=== PATIENT | male | born 1935 | race Caucasian/White ===

== ENCOUNTER 2019-02-18 09:50 | Outpatient (RCR) | payer MEDICARE | END 2019-02-19 | LOC: PT 09:50 | PROVIDERS: ATTEND Specialist | DX: M16.11 Unilateral primary osteoarthritis, right hip (principal); M62.81 Muscle weakness (generalized); M25.551 Pain in right hip; R26.2 Difficulty in walking, not elsewhere classified; M25.651 Stiffness of right hip, not elsewhere classified ==

== ENCOUNTER 2019-03-03 09:52 | Outpatient (RCR) | payer MEDICARE | END 2019-03-21 | LOC: PT 09:52 | PROVIDERS: ATTEND Specialist | DX: M16.11 Unilateral primary osteoarthritis, right hip (principal); M62.81 Muscle weakness (generalized); R26.2 Difficulty in walking, not elsewhere classified; M25.551 Pain in right hip; M25.651 Stiffness of right hip, not elsewhere classified | CPT/HCPCS: 97139 ==

== ENCOUNTER → 2019-05-09 | Outpatient (CLI) | payer MEDICARE ==
--- NOTE | 2019-05-09 18:27 | Diagnostic Imaging Report ---
Labeled WBC Study Reason for exam: Right hip and thigh pain x 3.5 months. Concern for osteomyelitis. Comparison: None Report: The patient's own white blood cells were labeled with [id number] HMPAO 23.5 mCi by a commercial radiopharmacy. Images of the pelvis, hips and thighs were obtained at 3.5 hours post administration of the labeled white blood cells. Distribution of tracer activity appears physiologic throughout the pelvis, hips and thighs to the knees. IMPRESSION: No scan evidence of osteomyelitis, specifically, none in the right hip or femur. Signed by: Dr. Tea Madrigal M.D. on 05/09/2019 6:24 PM
== END ==
LOC: NM 06:40
PROVIDERS: ATTEND Specialist
DX: M25.551 Pain in right hip (principal); M79.651 Pain in right thigh
CPT/HCPCS: 78806; A9521

== ENCOUNTER 2019-06-01 06:17 | Observation (INO) | payer MEDICARE ==
[2019-05-31 10:58] LABS: BASOPHILS # (AUTO) 0.1 (0.0-0.1); BASOPHILS % 0.9 % (0.0-1.0); EOSINOPHILS # (AUTO) 0.4 (0.0-0.4); EOSINOPHILS % 5.6 % (0.0-6.0); HEMATOCRIT 40.2 % (38.2-49.6); HEMOGLOBIN 12.7 g/dL (14.0-18.0); LYMPHOCYTES % 26.5 % (18.0-39.1); MEAN CORPUSCULAR HEMOGLOBIN 31.9 pg (28-32); MEAN CORPUSCULAR HGB CONC 31.6 g/dL (31-35); MONOCYTES # (AUTO) 0.8 (0.2-0.8); MONOCYTES % 10.4 % (4.4-11.3); NEUTROPHILS # (AUTO) 4.2 (2.1-6.9); NEUTROPHILS % 56.3 % (38.7-80.0); PLATELET COUNT 236 x10e3/uL (140-360); RED BLOOD COUNT 3.98 x10e6/uL (4.3-5.7); RED CELL DISTRIBUTION WIDTH 14.6 % (11.7-14.4)
--- NOTE | 2019-05-31 11:06 | Diagnostic Imaging Report ---
EXAM: CHEST 2 VIEWS DATE: 05/31/2019 9:42 AM INDICATION: Preoperative evaluation for right hip surgery COMPARISON: None FINDINGS: There are postsurgical changes from prior median sternotomy. The trachea is midline. There are bibasilar opacities suggestive of atelectasis. The lungs are otherwise symmetrically expanded without evidence for focal consolidation, pneumothorax, or significant pleural effusion. The cardiomediastinal silhouette is within normal limits. Atherosclerotic calcifications noted within the aortic arch. No acute osseous abnormality identified. IMPRESSION: No acute cardiopulmonary process identified. Signed by: Dr. Jairo Salazar MD on 05/31/2019 11:03 AM
[2019-05-31 11:20] LABS: ALBUMIN 3.7 g/dL (3.5-5.0); ALBUMIN/GLOBULIN RATIO 1.4 (0.8-2.0); ANION GAP 13.7 mmol/L (8-16); CALCIUM 9.6 mg/dL (8.4-10.2); CREATININE, SERUM 1.59 mg/dL (0.72-1.25); POTASSIUM 3.7 mmol/L (3.5-5.1)
[2019-05-31 11:57] LABS: INR 1.12; PROTHROMBIN TIME 14.9 seconds (11.9-14.5)
[2019-05-31 12:00] LABS: PARTIAL THROMBOPLASTIN TIME 30.1 seconds (23.8-35.5)
[~2019-06-01] VITALS: Ht 172.7 cm; Wt 59.0 kg
[~2019-06-01 06:17] MED LIST: ALLOPURINOL100 MG PO; ATORVASTATIN CA20 MG PO; CARVEDILOL3.125 MG PO; CLEARLAX119 GM PO; CLOPIDOGREL75 MG PO; COUMADIN5 MG PO; FERROUS SULFAT325 MG PO; FISH OIL 1,0001 EAC2 PO; FUROSEMIDE40 MG PO; GABAPENTIN100 MG PO; HYDRALAZINE HCL10 MG PO; ISOSORBIDE MONO20 MG PO; LEVOTHYROXINE50 MCG PO; LORATADINE10 MG PO; LOSARTAN POTASS25 MG PO; RANITIDINE HCL150 MG PO; VITAMIN B COMP1 EACH PO; VITAMIN B-121000 MCG PO; VITAMIN C250 MG PO; VITAMIN D32000 UNI1 PO
[2019-06-01] MEDS ORDERED: CLINDAMYCIN PHOS 900MG/ 50ML 50 ML IV ONE (07:22)
[2019-06-01] MEDS ORDERED: ACETAMINOPHEN 1000 MG/100 ML 100 ML IV ONE (08:54)
[2019-06-01] MEDS ORDERED: FENTANYL CITRATE/PF 100MCG/2 ML INJ ONE ×2 (08:54→11:42)
[2019-06-01] MEDS ORDERED: DIPHENHYDRAMINE HCL INJ 50 MG/ML VIAL IM/IV PRN (11:30)
[2019-06-01] MEDS ORDERED: ONDANSETRON HCL INJ 2MG/ML 2ML 2 MG/ML VIAL IV PRN (11:30)
[2019-06-01] MEDS ORDERED: NALOXONE HCL INJ 0.4 MG/ML AMP IV PRN (11:30)
[2019-06-01] MEDS ORDERED: HYDROMORPHONE 0.2MG/ML-SOD CHL 30ML PCA SYRINGE IV PRN (11:30)
[2019-06-01] MEDS ORDERED: ACETAMINOPHEN 1000 MG/100 ML IV PRN (11:30)
--- NOTE | 2019-06-01 13:21 | Diagnostic Imaging Report ---
INDICATION: Status post right hip surgery. COMPARISON: None. TECHNIQUE: Right hip radiograph 2 views. Right femur radiograph 2 views. FINDINGS / IMPRESSION: There is a right hip screw and intramedullary kimo secured by 1 distal femoral screw. No fracture is demonstrated. Air in the soft tissues of the thigh and skin radu are in keeping with immediate postoperative state. Femoral arterial calcifications noted. Signed by: Keyon Cervantes MD on 06/01/2019 1:18 PM
[2019-06-01 13:45] VITALS: BP 121/75
--- NOTE | 2019-06-01 13:45 | NUR ---
Received pt from PACU at this time. Pt was admitted s/p gamma nailing to right hip for stress fracture. Pt is aox4 and able to verbalize needs. Dressing to right knee are dry and intact. 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
[2019-06-01] MEDS: SODIUM CHLORIDE 0.9% 1000ML 1,000 ML IV SCH ×2 (14:00→21:20)
[2019-06-01 14:04] VITALS: BP 121/75
[2019-06-01] MEDS: CLINDAMYCIN PHOS 900MG/ 50ML 50 ML IV SCH ×2 (15:19→22:01)
[2019-06-01 15:52] VITALS: BP 152/66
--- NOTE | 2019-06-01 17:00 | NUR ---
Pt was up this afternoon ambulating with therapy. He was able to walk with rolling walker.
--- NOTE | 2019-06-01 18:55 | NUR ---
WALKING ROUNDS PERFORMED, RECEIVED PT LAYING SEMI FOWLERS IN BED, AAOX3, RR EVEN AND NON-LABORED, ON ROOM AIR. DRESSING TO (R) HIP NOTED TO BE CDI. STUNT PERFORMER BUTTON WITHIN REACH. LEFT PT LAYING SEMI FOWLERS IN BED, BED IN LOW LOCKED POSITION, SIDE RAILS UPX2, CALL LIGHT AND PHONE WITHIN REACH.
[2019-06-01 20:00] VITALS: BP 130/59
[2019-06-01 22:01] VITALS: BP 130/59
[2019-06-02] VITALS: BP 131/64
[2019-06-02 04:00] VITALS: BP 130/63
[2019-06-02] MEDS ORDERED: ACETAMINOPHEN 325 MG TAB PO PRN (05:15)
[2019-06-02] MEDS ORDERED: METOPROLOL TARTRATE INJ 1 MG/ML VIAL IV PRN (05:15)
[2019-06-02 05:29] LABS: BASOPHILS % 0.3 % (0.0-1.0); HEMATOCRIT 35.6 % (38.2-49.6); HEMOGLOBIN 11.6 g/dL (14.0-18.0); LYMPHOCYTES # (AUTO) 1.3 (1.0-3.2); LYMPHOCYTES % 11.3 % (18.0-39.1); MEAN CORPUSCULAR HEMOGLOBIN 32.9 pg (28-32); MEAN CORPUSCULAR HGB CONC 32.6 g/dL (31-35); MEAN CORPUSCULAR VOLUME 100.8 fL (81-99); MONOCYTES # (AUTO) 1.1 (0.2-0.8); MONOCYTES % 9.6 % (4.4-11.3); NEUTROPHILS % 78.2 % (38.7-80.0); PLATELET COUNT 200 x10e3/uL (140-360); RED BLOOD COUNT 3.53 x10e6/uL (4.3-5.7); RED CELL DISTRIBUTION WIDTH 14.6 % (11.7-14.4)
[2019-06-02 05:38] LABS: INR 1.13
[2019-06-02 05:43] LABS: ANION GAP 13.8 mmol/L (8-16); CREATININE, SERUM 1.55 mg/dL (0.72-1.25); POTASSIUM 3.8 mmol/L (3.5-5.1)
[2019-06-02] MEDS: CLINDAMYCIN PHOS 900MG/ 50ML 50 ML IV SCH (06:25)
[2019-06-02] MEDS ORDERED: FAMOTIDINE 20 MG TAB PO SCH ×2 (07:30→16:30)
[2019-06-02 07:53] VITALS: BP 129/61
[2019-06-02 08:00] VITALS: BP 129/61
[2019-06-02] MEDS ORDERED: RIVAROXABAN 10 MG TABLET PO SCH (08:00)
[2019-06-02] MEDS: CARVEDILOL 3.125 MG TAB PO SCH ×2 (08:23→16:37)
[2019-06-02] MEDS: GABAPENTIN 100 MG CAP PO SCH ×2 (08:25→16:36)
[2019-06-02] MEDS ORDERED: ATORVASTATIN 20 MG TAB PO SCH (09:00)
[2019-06-02] MEDS: HYDRALAZINE HCL 10 MG TAB PO SCH ×2 (09:00→16:44)
[2019-06-02] MEDS ORDERED: LEVOTHYROXINE SODIUM 50 MCG TAB PO SCH (09:00)
[2019-06-02] MEDS ORDERED: FUROSEMIDE 40 MG TAB PO SCH (09:00)
[2019-06-02] MEDS ORDERED: ALLOPURINOL 100 MG TAB PO SCH (09:00)
[2019-06-02] MEDS ORDERED: ISOSORBIDE MONONITRATE 20 MG TAB PO SCH (09:00)
[2019-06-02 11:25] VITALS: BP 123/61
[2019-06-02] MEDS ORDERED: HYDROCODONE/APAP 5MG-325MG TAB PO PRN ×2 (12:45)
--- NOTE | 2019-06-02 13:15 | NUR ---
MET WITH PT AND DTR [facility] FOR [facility] CHOICE LETTER GIVEN; SIGNED FOR [facility] [place] NOTIFIED [facility] OF CONSULT MOT INITIATED AND PLACED IN PACKET AT DESK PLAN DC TODAY AFTER ACCEPTED TO REHAB DR FLORES AWARE OF PLAN AND AGREEABLE AWAIT MOT
[2019-06-02] MEDS ORDERED: CYANOCOBALAMIN 1,000 MCG TAB PO SCH (14:00)
[2019-06-02] MEDS ORDERED: LORATADINE 10 MG TAB PO SCH (14:00)
[2019-06-02] MEDS ORDERED: CLOPIDOGREL BISULFATE 75 MG TAB PO SCH (14:00)
[2019-06-02] MEDS ORDERED: ONDANSETRON HCL 4 MG ORAL DISINTEGRATING TAB PO PRN (15:30)
[2019-06-02 16:17] VITALS: BP 137/72
[2019-06-02] MEDS ORDERED: WARFARIN SOD 5 MG TAB PO SCH (17:00)
[2019-06-02] MEDS ORDERED: OMEGA 3 POLYUNSAT FATTY ACIDS 1000 MG SOFTGEL PO SCH (17:00)
[2019-06-02] MEDS ORDERED: VITAMIN B COMPLEX PO SCH (17:00)
[2019-06-02] MEDS ORDERED: NON-FORMULARY MEDICATION (Omega-3 Fatty Acids/Fish Oil (Fish Oil 1,000 Mg Capsule) 1,000 M PO SCH (17:00)
[2019-06-02] MEDS ORDERED: NON-FORMULARY MEDICATION (Ranitidine Hcl 150 MG) PO SCH (17:00)
[2019-06-02] MEDS ORDERED: FOLIC ACID/CYANOCOB/PYRIDOXINE TAB PO SCH (17:00)
[2019-06-03] MEDS ORDERED: LEVOTHYROXINE SODIUM 50 MCG TAB PO SCH (06:00)
[2019-06-03] MEDS ORDERED: ASCORBIC ACID 500 MG TAB PO SCH (09:00)
[2019-06-03] MEDS ORDERED: WARFARIN SOD 5 MG TAB PO SCH (09:00)
[2019-06-03] MEDS ORDERED: POLYETHYLENE GLYCOL PO SCH (09:00)
[2019-06-03] MEDS ORDERED: POLYETHYLENE GLYCOL 3350 17 GM PACK PO SCH (09:00)
[2019-06-03] MEDS ORDERED: ASCORBIC ACID 250 MG PO SCH (09:00)
[2019-06-03] MEDS ORDERED: FERROUS SULFATE 325 MG TAB PO SCH (09:00)
[2019-06-03] MEDS ORDERED: LOSARTAN POTASSIUM 25 MG TAB PO SCH (09:00)
[2019-06-03] MEDS ORDERED: NON-FORMULARY MEDICATION (Cholecalciferol (Vitamin D3) (Vitamin D3) 2,000 UNIT) PO SCH (09:00)
[2019-06-03] MEDS ORDERED: CHOLECALCIFEROL 1,000 UNIT TAB PO SCH (09:00)
--- NOTE | 2019-06-03 17:43 | Operative Report ---
DATE OF PROCEDURE: 06/01/2019 SURGEON: Leonardo Moran MD PREOPERATIVE DIAGNOSIS: Right hip stress fracture. POSTOPERATIVE DIAGNOSIS: Right hip stress fracture. OPERATIONS AND PROCEDURES PERFORMED: The patient underwent a right long gamma nail. STONECUTTER APPRENTICE HAND: GLORIA Nolan. ANESTHESIA: General endotracheal intubation anesthesia. IV FLUIDS: Per the Anesthesia record. BLOOD LOSS: Approximately 100 mL. BRIEF DESCRIPTION OF THE PATIENT'S OPERATIVE PROCEDURE: Mr. Monte was taken to the operating room and placed in the supine position on the fracture table. Following induction of general anesthesia as well as endotracheal intubation, the patient's right lower extremity was examined under anesthesia. The patient was found to have diffuse normal-appearing right lower extremity. The patient was transferred to the fracture table. The right lower extremity was placed in a well-padded longitudinal traction and the left lower extremity was placed in a well-padded lithotomy position. Fluoroscopic evaluation of the hip joint demonstrated mild hip arthritis, but no other gross abnormality. The patient's lower extremity was then prepped and draped in standard surgical fashion. The case was begun by creating incision at the level of the greater trochanter. This incision was carried through skin only. Blunt dissection was used to deepen the incision to the level of the tensor fascia magnolia. The tensor fascia magnolia was then divided in line with the skin incision. Blunt dissection was again used to gain access to the proximal aspect of the greater trochanter. An awl was placed of the trochanter and the position of the awl was checked using fluoroscopy. The awl was then advanced within the femur and a guidewire was then passed within the medullary canal of the femur to the level of the knee. The position of the guidewire was checked in both AP and lateral planes using fluoroscopy. Sequential reaming was undertaken. An appropriate-sized gamma nail was chosen and inserted without difficulty. A second incision was created along the lateral aspect of the thigh. Blunt dissection was used to deepen the incision and the tensor fascia magnolia was again incised in line with the skin incision. The guide for the compression screw was then advanced against the lateral aspect of the femur and a guidepin was advanced from lateral to medial through the neck into the head of the femur. The position of the guidepin was checked using fluoroscopy. The patient was found to have a retroverted head. Measurements were taken and a reamer was used to create a channel for the compression screw. The compression screw was then advanced across the patient's right femoral neck and placed in the head of the femur. Compression was then placed across fixation device and the compression screw was locked to allow for further compression, but to prevent rotation. The nail was then locked distally with a single screw using a freehand technique. The gamma nail was then visualized in its entirety and found to be in appropriate position. All wounds were copiously irrigated. The wounds were closed in a multilayer fashion. Sterile dressings were applied. The patient was awakened and taken to the postanesthesia anesthesia care in stable condition. Mariaelena Isbell was the virtual customer assistant for this case and was necessary for both prepping and draping the patient as well as retraction of soft tissues and the closure of wounds that allowed this case to be successful. MD CHARLA Pedroza/MARILU /[id number]
[2019-06-03] MEDS ORDERED: ATORVASTATIN 40 MG TAB PO SCH (21:00)
--- OUTSIDE RECORDS SUMMARY | 2019-06-10 10:51 | XMS REPORT ---
Author Author [facility] Address Unknown Phone Unavailable Care Team Providers Care Auto Transmission Specialist Name Role Phone BROOKS FLORES Unavailable Unavailable DAINA ALONSO Unavailable Unavailable JAILYN SIMONS Unavailable Unavailable LORENZA WILLARD Unavailable Unavailable Tyrone MOON Unavailable Unavailable LATHA WAGONER Unavailable Unavailable Problems This patient has no known problems. Allergies, Adverse Reactions, Alerts This patient has no known allergies or adverse reactions. Medications This patient has no known medications. Encounters Start Date/Time End Date/Time Encounter Type Admission Type Attending Clinicians Care Facility Care Department Encounter ID 2018-11-22 15:52:05 Outpatient MHSE MHSE [id number] 2018-12-30 10:29:00 2018-12-30 10:29:00 Outpatient MH MHSE [id number] Results Test Description Test Time Test Comments Text Results Atomic Results Result Comments FEMUR ONE VIEW RIGHT 2019-06-01 13:15:00 [place] [address] Patient Name: YA DUARTE MR #: [id number] : 1935 Age/Sex: 83/M Req #: [id number] [facility] Physician: BROOKS FLORES MD Ordered by: BROOKS FLORES MD Report #: [id number] Location: PACU V Room/Bed: V PACU-1 Procedure: [id number] DX/FEMUR ONE VIEW RIGHT Exam Date: Exam Time: REPORT STATUS: Signed INDICATION: Status post right hip surgery. COMPARISON: None. TECHNIQUE: Right hip radiograph 2 views. Right femur radiograph 2 views. FINDINGS / IMPRESSION: There is a right hip screw and intramedullary kimo secured by 1 distal femoral screw. No fracture is demonstrated. Air in the soft tissues of the thigh and skin radu are in keeping with immediate postoperative state. Femoral arterial calcifications noted. Signed by: Keyon Cervantes MD on 06/01/2019 1:18 PM Dictated By: KEYON CERVANTES 17 Transcribed By: RYNE on 06/01/191317 COPY TO: BROOKS FLORES MD HIP RIGHT 2-3 VW (+/- PELVIS) 2019-06-01 13:15:00 [place] [address] Patient Name: YA DUARTE MR #: [id number] : 1935 Age/Sex: 83/M Req #: [id number] Adm Physician: BROOKS FLORES MD Ordered by: BROOKS FLORES MD Report #: [id number] Location: PACU V Room/Bed: PACU-1 Procedure: [id number] DX/HIP RIGHT 2-3 VW (+/- PELVIS) Exam Date: Exam Time: REPORT STATUS: Signed INDICATION: Status post right hip surgery. COMPARISON: None. TECHNIQUE: Right hip radiograph 2 views. Right femur radiograph 2 views. FINDINGS / IMPRESSION: There is a right hip screw and intramedullary kimo secured by 1 distal femoral screw. No fracture is demonstrated. Air in the soft tissues of the thigh and skin radu are in keeping with immediate postoperative state. Femoral arterial calcifications noted. Signed by: Keyon Cervantes MD on 06/01/2019 1:18 PM Dictated By: KEYON CERVANTES 17 Transcribed By: RYNE on 06/01/191317 COPY TO: BROOKS FLORES MD CHEST 2 VIEWS 2019-05-31 11:01:00 [place] [address] Patient Name: YA DUARTE MR #: [id number] : 1935 Age/Sex: 83/M Req #: [id number] Adm Physician: Ordered by: BROOKS FLORES MD Report #: [id number] Location: OR Room/Bed: Procedure: [id number] DX/CHEST 2 VIEWS Exam Date: Exam Time: REPORT STATUS: Signed EXAM: CHEST 2 VIEWS DATE: 05/31/2019 9:42 AM INDICATION: Pr eoperative evaluation for right hip surgery COMPARISON: None FINDINGS: There are postsurgical changes from prior median sternotomy. The trachea is midline. There are bibasilar opacities suggestive of atelectasis. The lungs are otherwise symmetrically expanded without evidence for focal consolidation, pneumothorax, or significant pleural effusion. The cardiomediastinal silhouette is within normal limits. Atherosclerotic calcifications noted within the aortic arch. No acute osseous abnormality identified. IMPRESSION: No acute cardiopulmonary process identif ied. Signed by: Dr. Jairo Salazar MD on 05/31/2019 11:03 AM Dictated By: JAIRO SALAZAR MD 110 Transcribed By: RYNE on 05/31/191102 COPY TO: BROOKS FLORES MD TAGGED WBC 2019-05-09 18:14:00 [place] [address] [place] [address] Patient Name: YA DUARTE MR #: [id number] : 1935 Age/Sex: 83/M Req #: [id number] Adm Physician: Ordered by: BROOKS FLORES MD Report #: [id number] Location: RI Room/Bed: Procedure: [id number] NM/TAGGED WBC Exam Date: 05/09/19 Exam Time: 0800 REPORT STATUS: Signed Labeled WBC Study Reason for exam: Right hip and thigh pain x 3.5 months. Concern for osteomyelitis. Comparison: None Report: The patient's own white blood cells were labeled with Tc-99m HMPAO 23.5 mCi by a commercial radiopharmacy. Images of the pelvis, hips and thighs were obtained at 3.5 hours post administration of the labeled white blood cells. Distribution of tracer activity appears physiologic throughout the pelvis, hips and thighs to the knees. IMPRESSION: No scan evidence of osteomyelitis, specifically, none in the right hip or femur. Signed by: Dr. Leandro Madrigal M.D. on 05/09/2019 6:24 PM Dictated By: LEANDRO MADRIGAL MD 23 Transcribed By: RYNE on 05/09/191823 COPY TO: BROOKS FLORES MD MR, EXTREMITY, LOWER, JOINT, WITH 2019-03-24 14:28:00 Referring Md: Angelika Murray needs to have MRI scheduled with coordiantion with anesthesiaPt unable to lay down due to severe painReason for exam:->severe painAnesthesia:->General FINAL REPORT MRI right hip with and without contrast. INDICATION: Hip pain, initial examsevere pain COMPARISON: CT dated March 06, 2019 and radiograph dated January 25, 2019 T ECHNIQUE: Multiplanar multisequence MRI examination of the right hip was performed with and without intravenous gadolinium. FINDINGS: Marked edema is seen in the right femoral head, neck and proximal shaft. There is severe osteoarthritis of the right hip, subchondral marrow edema is also seen at the right acetabulum. At the anterior superior as well as posterior superior aspect of the right femoral head, peripheral T1 and T2 hypointense signal as well as lack of enhancement suggests avascular necrosis, perhaps with superimposed subtle subchondral fracture. There is a vague T1 hypointense horizontal band in the right femoral neck, raising suspicion for stress reaction. A small to moderate right-sided hip joint effusion is present. The superior labrum is degenerated, but no definite labral tear is identified. There is mild edema at the inferior aspect of the right SI joint, which may reflect degenerative change/stress reaction. The hamstring, iliopsoas, and gluteus tendons are intact. There is patchy edema in the right proximal obturator externus, gluteus minimus, proximal adductor muscles, as well as iliacus muscles, most likely to reflect strain. Normal muscle bulk. Within the pelvis, no mass or lymphadenopathy is identified. No ascites. Note is made of colonic diverticulosis. 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 Prominent marrow edema in the right femoral head, neck and proximal shaft could be related to degenerative change, and avascular necrosis, but the degree of edema is more than what is typically expected. There is a questionable focus of stress reaction in the right femoral neck. While septic arthritis is less likely, clinical correlation is needed to exclude this process. Patchy right pelvic muscle edema, probably reflecting strain. Mild edema at the inferior aspect of the right SI joint, which may reflect degenerative change/stress reaction. Signed: Marla Islas Verified Date/Time: 03/24/2019 14:28:36 Reading Location: [facility] C013X Ortho Consult Reading Room W/PLT COUNT & AUTO DIFFERENTIAL 2019-03-24 06:57:00 WHITE BLOOD CELL COUNT (BEAKER) (test cchr=441) 10.4 K/ L 3.5-10.5 RED BLOOD CELL COUNT (BEAKER) (test qumj=249) 4.24 M/ L 4.63-6.08 HEMOGLOBIN (BEAKER) (test xrxb=902) 13.7 GM/DL 13.7-17.5 HEMATOCRIT (BEAKER) (test czzp=564) 41.9 % 40.1-51.0 MEAN CORPUSCULAR VOLUME (BEAKER) (test vfdy=923) 98.8 fL 79.0-92.2 MEAN CORPUSCULAR HEMOGLOBIN (BEAKER) (test xmsk=019) 32.3 pg 25.7-32.2 MEAN CORPUSCULAR HEMOGLOBIN CONC (BEAKER) (test iepj=942) 32.7 GM/DL 32.3-36.5 RED CELL DISTRIBUTION WIDTH (BEAKER) (test vwff=690) 15.0 % 11.6-14.4 PLATELET COUNT (BEAKER) (test yjqx=138) 214 K/CU MM 150-450 MEAN PLATELET VOLUME (BEAKER) (test oafe=488) 10.5 fL 9.4-12.4 NUCLEATED RED BLOOD CELLS (BEAKER) (test mnib=051) 0 /100 WBC 0-0 NEUTROPHILS RELATIVE PERCENT (BEAKER) (test ouvd=460) 83 % LYMPHOCYTES RELATIVE PERCENT (BEAKER) (test sfsn=751) 12 % MONOCYTES RELATIVE PERCENT (BEAKER) (test fhuu=114) 5 % EOSINOPHILS RELATIVE PERCENT (BEAKER) (test ihxw=818) 0 % BASOPHILS RELATIVE PERCENT (BEAKER) (test romn=333) 0 % NEUTROPHILS ABSOLUTE COUNT (BEAKER) (test oopi=109) 8.65 K/ L 1.78-5.38 LYMPHOCYTES ABSOLUTE COUNT (BEAKER) (test dnso=853) 1.22 K/ L 1.32-3.57 MONOCYTES ABSOLUTE COUNT (BEAKER) (test iqjw=671) 0.50 K/ L 0.30-0.82 EOSINOPHILS ABSOLUTE COUNT (BEAKER) (test vsfq=630) 0.00 K/ L 0.04-0.54 BASOPHILS ABSOLUTE COUNT (BEAKER) (test fhwz=604) 0.03 K/ L 0.01-0.08 IMMATURE GRANULOCYTES-RELATIVE PERCENT (BEAKER) (test sjcg=2769) 0 % 0-1 [id number] 06:56:00* Test Item Value Reference Range Comments PHOSPHORUS (BEAKER) (test gxxw=425) 2.0 mg/dL 2.3-4.7 [id number] 06:56:00* Test Item Value Reference Range Comments MAGNESIUM (BEAKER) (test cinp=642) 1.5 mg/dL 1.6-2.6 BASIC METABOLIC [id number] 06:56:00* Test Item Value Reference Range Comments SODIUM (BEAKER) (test khoi=373) 140 meq/L 136-145 POTASSIUM (BEAKER) (test ofvj=655) 3.7 meq/L 3.5-5.1 CHLORIDE (BEAKER) (test txls=790) 104 meq/L 98-107 CO2 (BEAKER) (test hzkj=486) 26 meq/L 22-29 BLOOD UREA NITROGEN (BEAKER) (test kjsx=046) 27 mg/dL 7-21 CREATININE (BEAKER) (test ufoj=085) 1.43 mg/dL 0.57-1.25 GLUCOSE RANDOM (BEAKER) (test ehrb=599) 135 mg/dL 70-105 CALCIUM (BEAKER) (test auak=867) 9.1 mg/dL 8.4-10.2 EGFR (BEAKER) (test lxmk=9351) 47 mL/min/1.73 sq m ESTIMATED GFR IS NOT ACCURATE CREATININE CLEARANCE IN PREDICTING GLOMERULAR FILTRATION RATE. ESTIMATED GFR IS NOT APPLICABLE FOR DIALYSIS PATIENTS. CALCIUM, [id number] 06:44:00* Test Item Value Reference Range Comments CALCIUM IONIZED (BEAKER) (test eics=468) 1.09 mmol/L 1.12-1.27 PH, BLOOD (BEAKER) (test txtv=8048) 7.46 OVA AND PARASITE [id number] 07:48:00* Test Item Value Reference Range Comments CONCENTRATE SMEAR - O\T\P (BEAKER) (test rmpi=167) No ova or parasites seen No ova or parasites seen TRICHROME SMEAR - O\T\P (BEAKER) (test qlwe=389) No ova or parasites seen No ova or parasites seen CALCIUM, [id number] 06:01:00* Test Item Value Reference Range Comments CALCIUM IONIZED (BEAKER) (test tkhg=853) 1.11 mmol/L 1.12-1.27 PH, BLOOD (BEAKER) (test pgaw=9540) 7.47 [id number] 04:41:00* Test Item Value Reference Range Comments PHOSPHORUS (BEAKER) (test kdzb=485) 2.8 mg/dL 2.3-4.7 [id number] 04:41:00* Test Item Value Reference Range Comments MAGNESIUM (BEAKER) (test aeby=279) 1.5 mg/dL 1.6-2.6 BASIC METABOLIC [id number] 04:41:00* Test Item Value Reference Range Comments SODIUM (BEAKER) (test sybe=709) 143 meq/L 136-145 POTASSIUM (BEAKER) (test moiz=873) 3.6 meq/L 3.5-5.1 CHLORIDE (BEAKER) (test inne=264) 108 meq/L 98-107 CO2 (BEAKER) (test rqrl=306) 29 meq/L 22-29 BLOOD UREA NITROGEN (BEAKER) (test ldym=804) 23 mg/dL 7-21 CREATININE (BEAKER) (test mbiq=916) 1.56 mg/dL 0.57-1.25 GLUCOSE RANDOM (BEAKER) (test jdoa=869) 108 mg/dL 70-105 CALCIUM (BEAKER) (test xwja=899) 9.0 mg/dL 8.4-10.2 EGFR (BEAKER) (test uamw=3551) 43 mL/min/1.73 sq m ESTIMATED GFR IS NOT ACCURATE CREATININE CLEARANCE IN PREDICTING GLOMERULAR FILTRATION RATE. ESTIMATED GFR IS NOT APPLICABLE FOR DIALYSIS PATIENTS. CBC W/PLT COUNT & AUTO [id number] 04:18:00* Test Item Value Reference Range Comments WHITE BLOOD CELL COUNT (BEAKER) (test oyqe=593) 7.3 K/ L 3.5-10.5 RED BLOOD CELL COUNT (BEAKER) (test aapz=526) 3.92 M/ L 4.63-6.08 HEMOGLOBIN (BEAKER) (test yysl=794) 12.7 GM/DL 13.7-17.5 HEMATOCRIT (BEAKER) (test liah=805) 38.6 % 40.1-51.0 MEAN CORPUSCULAR VOLUME (BEAKER) (test uxwx=398) 98.5 fL 79.0-92.2 MEAN CORPUSCULAR HEMOGLOBIN (BEAKER) (test isxa=266) 32.4 pg 25.7-32.2 MEAN CORPUSCULAR HEMOGLOBIN CONC (BEAKER) (test bnsh=639) 32.9 GM/DL 32.3-36.5 RED CELL DISTRIBUTION WIDTH (BEAKER) (test qlie=023) 15.0 % 11.6-14.4 PLATELET COUNT (BEAKER) (test eevl=983) 209 K/CU MM 150-450 MEAN PLATELET VOLUME (BEAKER) (test htht=256) 10.4 fL 9.4-12.4 NUCLEATED RED BLOOD CELLS (BEAKER) (test ktfx=774) 0 /100 WBC 0-0 NEUTROPHILS RELATIVE PERCENT (BEAKER) (test yrtz=497) 57 % LYMPHOCYTES RELATIVE PERCENT (BEAKER) (test wrep=427) 28 % MONOCYTES RELATIVE PERCENT (BEAKER) (test axmv=470) 9 % EOSINOPHILS RELATIVE PERCENT (BEAKER) (test hkrp=959) 4 % BASOPHILS RELATIVE PERCENT (BEAKER) (test xmmn=190) 1 % NEUTROPHILS ABSOLUTE COUNT (BEAKER) (test aqqk=761) 4.16 K/ L 1.78-5.38 LYMPHOCYTES ABSOLUTE COUNT (BEAKER) (test lssi=454) 2.03 K/ L 1.32-3.57 MONOCYTES ABSOLUTE COUNT (BEAKER) (test nlbc=821) 0.69 K/ L 0.30-0.82 EOSINOPHILS ABSOLUTE COUNT (BEAKER) (test rqrg=479) 0.32 K/ L 0.04-0.54 BASOPHILS ABSOLUTE COUNT (BEAKER) (test qfym=650) 0.07 K/ L 0.01-0.08 IMMATURE GRANULOCYTES-RELATIVE PERCENT (BEAKER) (test mijh=8720) 1 % 0-1 BASIC METABOLIC [id number] 06:17:00* Test Item Value Reference Range Comments SODIUM (BEAKER) (test qsrf=920) 141 meq/L 136-145 POTASSIUM (BEAKER) (test alje=443) 3.5 meq/L 3.5-5.1 CHLORIDE (BEAKER) (test laia=564) 108 meq/L 98-107 CO2 (BEAKER) (test lrmv=450) 26 meq/L 22-29 BLOOD UREA NITROGEN (BEAKER) (test qaqg=596) 15 mg/dL 7-21 CREATININE (BEAKER) (test ixqe=940) 1.25 mg/dL 0.57-1.25 GLUCOSE RANDOM (BEAKER) (test pjkx=709) 84 mg/dL 70-105 CALCIUM (BEAKER) (test jtdo=770) 8.9 mg/dL 8.4-10.2 EGFR (BEAKER) (test cgto=8682) 55 mL/min/1.73 sq m ESTIMATED GFR IS NOT ACCURATE CREATININE CLEARANCE IN PREDICTING GLOMERULAR FILTRATION RATE. ESTIMATED GFR IS NOT APPLICABLE FOR DIALYSIS PATIENTS. PROTHROMBIN TIME/[id number] 06:07:00* Test Item Value Reference Range Comments PROTIME (BEAKER) (test dioe=403) 28.7 seconds 11.9-14.2 INR (BEAKER) (test kehb=103) 2.9 <=5.9 Effective 11/17/2018: PT Reference Range ChangeNew: 11.9-14.2 Previous: 11.7-14. 7RECOMMENDED COUMADIN/WARFARIN INR THERAPY RANGESSTANDARD DOSE: 2.0-3.0 Include s: PROPHYLAXIS for venous thrombosis, systemic embolization; TREATMENT for venou s thrombosis and/or pulmonary embolus.HIGH RISK: Target INR is 2.5-3.5 for patie nts wiht mechanical heart valves.CBC (HEMOGRAM ONLY)2019-03-22 05:55:00* Test Item Value Reference Range Comments WHITE BLOOD CELL COUNT (BEAKER) (test cpsv=572) 7.5 K/ L 3.5-10.5 RED BLOOD CELL COUNT (BEAKER) (test ffgz=660) 3.88 M/ L 4.63-6.08 HEMOGLOBIN (BEAKER) (test mczj=234) 12.8 GM/DL 13.7-17.5 HEMATOCRIT (BEAKER) (test scru=520) 37.8 % 40.1-51.0 MEAN CORPUSCULAR VOLUME (BEAKER) (test mejt=499) 97.4 fL 79.0-92.2 MEAN CORPUSCULAR HEMOGLOBIN (BEAKER) (test vsxh=346) 33.0 pg 25.7-32.2 MEAN CORPUSCULAR HEMOGLOBIN CONC (BEAKER) (test ywqr=897) 33.9 GM/DL 32.3-36.5 RED CELL DISTRIBUTION WIDTH (BEAKER) (test ucny=252) 15.1 % 11.6-14.4 PLATELET COUNT (BEAKER) (test bctx=251) 208 K/CU MM 150-450 MEAN PLATELET VOLUME (BEAKER) (test bqoi=004) 10.4 fL 9.4-12.4 NUCLEATED RED BLOOD CELLS (BEAKER) (test mcvj=371) 0 /100 WBC 0-0 STOOL CULTURE + SHIGA [id number] 12:45:00* Test Item Value Reference Range Comments CULTURE (BEAKER) (test zkwx=6931) No Salmonella, Shigella or Campylobacter isolated STOOL PATH [id number] 12:45:00* Test Item Value Reference Range Comments PATHOGEN EXAM CHARGED (BEAKER) (test ckdy=4303) Done HEPATIC FUNCTION [id number] 07:58:00* Test Item Value Reference Range Comments TOTAL PROTEIN (BEAKER) (test jbal=832) 5.4 gm/dL 6.0-8.3 ALBUMIN (BEAKER) (test trha=2794) 3.3 g/dL 3.5-5.0 BILIRUBIN TOTAL (BEAKER) (test qodl=198) 0.5 mg/dL 0.2-1.2 BILIRUBIN DIRECT (BEAKER) (test kipn=394) 0.3 mg/dL 0.1-0.5 ALKALINE PHOSPHATASE (BEAKER) (test sriz=289) 109 U/L 40-150 AST (SGOT) (BEAKER) (test hcrq=347) 22 U/L 5-34 ALT (SGPT) (BEAKER) (test vexe=399) 17 U/L 6-55 BASIC METABOLIC [id number] 07:58:00* Test Item Value Reference Range Comments SODIUM (BEAKER) (test tnja=267) 142 meq/L 136-145 POTASSIUM (BEAKER) (test oyhe=861) 3.6 meq/L 3.5-5.1 CHLORIDE (BEAKER) (test wbbx=469) 114 meq/L 98-107 CO2 (BEAKER) (test lqwo=074) 22 meq/L 22-29 BLOOD UREA NITROGEN (BEAKER) (test mniw=890) 16 mg/dL 7-21 CREATININE (BEAKER) (test bivi=790) 1.13 mg/dL 0.57-1.25 GLUCOSE RANDOM (BEAKER) (test wbeo=475) 86 mg/dL 70-105 CALCIUM (BEAKER) (test ugky=339) 9.0 mg/dL 8.4-10.2 EGFR (BEAKER) (test okmx=6014) 62 mL/min/1.73 sq m ESTIMATED GFR IS NOT ACCURATE CREATININE CLEARANCE IN PREDICTING GLOMERULAR FILTRATION RATE. ESTIMATED GFR IS NOT APPLICABLE FOR DIALYSIS PATIENTS. PROTHROMBIN TIME/[id number] 07:46:00* Test Item Value Reference Range Comments PROTIME (BEAKER) (test uctn=676) 33.5 seconds 11.9-14.2 INR (BEAKER) (test okej=481) 3.5 <=5.9 Effective 11/17/2018: PT Reference Range ChangeNew: 11.9-14.2 Previous: 11.7-14. 7RECOMMENDED COUMADIN/WARFARIN INR THERAPY RANGESSTANDARD DOSE: 2.0-3.0 Include s: PROPHYLAXIS for venous thrombosis, systemic embolization; TREATMENT for venou s thrombosis and/or pulmonary embolus.HIGH RISK: Target INR is 2.5-3.5 for patie nts wiht mechanical heart valves.CBC (HEMOGRAM ONLY)2019-03-21 07:37:00* Test Item Value Reference Range Comments WHITE BLOOD CELL COUNT (BEAKER) (test gsch=766) 7.1 K/ L 3.5-10.5 RED BLOOD CELL COUNT (BEAKER) (test hpfm=581) 3.63 M/ L 4.63-6.08 HEMOGLOBIN (BEAKER) (test vmnq=764) 11.9 GM/DL 13.7-17.5 HEMATOCRIT (BEAKER) (test leki=472) 36.4 % 40.1-51.0 MEAN CORPUSCULAR VOLUME (BEAKER) (test vdli=292) 100.3 fL 79.0-92.2 MEAN CORPUSCULAR HEMOGLOBIN (BEAKER) (test xzac=811) 32.8 pg 25.7-32.2 MEAN CORPUSCULAR HEMOGLOBIN CONC (BEAKER) (test glug=499) 32.7 GM/DL 32.3-36.5 RED CELL DISTRIBUTION WIDTH (BEAKER) (test vpan=560) 15.1 % 11.6-14.4 PLATELET COUNT (BEAKER) (test ogtv=992) 195 K/CU MM 150-450 MEAN PLATELET VOLUME (BEAKER) (test cfkq=037) 10.4 fL 9.4-12.4 NUCLEATED RED BLOOD CELLS (BEAKER) (test zzyi=288) 0 /100 WBC 0-0 SHIGA TOXIN [id number] 13:37:00* Test Item Value Reference Range Comments SHIGA TOXIN 1 (BEAKER) (test vrlg=5450) Not detected Not detected SHIGA TOXIN 2 (BEAKER) (test sdyt=2848) Not detected Not detected HEPATIC FUNCTION [id number] 05:52:00* Test Item Value Reference Range Comments TOTAL PROTEIN (BEAKER) (test nbwj=687) 5.2 gm/dL 6.0-8.3 ALBUMIN (BEAKER) (test eonu=4478) 3.2 g/dL 3.5-5.0 BILIRUBIN TOTAL (BEAKER) (test rvdr=175) 0.5 mg/dL 0.2-1.2 BILIRUBIN DIRECT (BEAKER) (test rmvm=811) 0.3 mg/dL 0.1-0.5 ALKALINE PHOSPHATASE (BEAKER) (test ddvu=244) 90 U/L 40-150 AST (SGOT) (BEAKER) (test swyr=966) 20 U/L 5-34 ALT (SGPT) (BEAKER) (test fsix=651) 15 U/L 6-55 BASIC METABOLIC [id number] 05:52:00* Test Item Value Reference Range Comments SODIUM (BEAKER) (test pgls=330) 140 meq/L 136-145 POTASSIUM (BEAKER) (test votg=040) 3.4 meq/L 3.5-5.1 CHLORIDE (BEAKER) (test mazl=936) 112 meq/L 98-107 CO2 (BEAKER) (test cmsw=783) 22 meq/L 22-29 BLOOD UREA NITROGEN (BEAKER) (test fdco=653) 21 mg/dL 7-21 CREATININE (BEAKER) (test fnfr=151) 1.37 mg/dL 0.57-1.25 GLUCOSE RANDOM (BEAKER) (test antm=251) 87 mg/dL 70-105 CALCIUM (BEAKER) (test cdsn=357) 8.5 mg/dL 8.4-10.2 EGFR (BEAKER) (test kirs=9002) 50 mL/min/1.73 sq m ESTIMATED GFR IS NOT ACCURATE CREATININE CLEARANCE IN PREDICTING GLOMERULAR FILTRATION RATE. ESTIMATED GFR IS NOT APPLICABLE FOR DIALYSIS PATIENTS. PROTHROMBIN TIME/[id number] 05:32:00* Test Item Value Reference Range Comments PROTIME (BEAKER) (test xmrj=631) 31.3 seconds 11.9-14.2 INR (BEAKER) (test csug=510) 3.2 <=5.9 Effective 11/17/2018: PT Reference Range ChangeNew: 11.9-14.2 Previous: 11.7-14. 7RECOMMENDED COUMADIN/WARFARIN INR THERAPY RANGESSTANDARD DOSE: 2.0-3.0 Include s: PROPHYLAXIS for venous thrombosis, systemic embolization; TREATMENT for venou s thrombosis and/or pulmonary embolus.HIGH RISK: Target INR is 2.5-3.5 for patie nts wiht mechanical heart valves.CBC (HEMOGRAM ONLY)2019-03-20 05:31:00* Test Item Value Reference Range Comments WHITE BLOOD CELL COUNT (BEAKER) (test kqkc=664) 7.2 K/ L 3.5-10.5 RED BLOOD CELL COUNT (BEAKER) (test rhbl=221) 3.52 M/ L 4.63-6.08 HEMOGLOBIN (BEAKER) (test rzbm=044) 11.6 GM/DL 13.7-17.5 HEMATOCRIT (BEAKER) (test mzne=205) 35.0 % 40.1-51.0 MEAN CORPUSCULAR VOLUME (BEAKER) (test rjdf=076) 99.4 fL 79.0-92.2 MEAN CORPUSCULAR HEMOGLOBIN (BEAKER) (test pukg=518) 33.0 pg 25.7-32.2 MEAN CORPUSCULAR HEMOGLOBIN CONC (BEAKER) (test fqpy=639) 33.1 GM/DL 32.3-36.5 RED CELL DISTRIBUTION WIDTH (BEAKER) (test xpok=965) 14.9 % 11.6-14.4 PLATELET COUNT (BEAKER) (test tqky=893) 192 K/CU MM 150-450 MEAN PLATELET VOLUME (BEAKER) (test lnyi=244) 10.5 fL 9.4-12.4 NUCLEATED RED BLOOD CELLS (BEAKER) (test vlsr=298) 0 /100 WBC 0-0 C. DIFFICILE GDH [id number] 14:27:00* Test Item Value Reference Range Comments CDT TOXIN (test mplg=[id number]) Negative Negative CDT GDH ANTIGEN (test iplu=[id number]) Negative Negative No indication of Clostridium difficile infection and no colonization. Discontinue enteric isolation and therapy. Testing performed by [employer] Rapid Cassette Assay. For GDH, published sensitivity of the assay is 98.7% compared to cytotoxicity testing. For Toxin AB, published sensitivity is 87.8% and specificity 99.4% compared to cytotoxicity testing.Ve rification of kit performance was done by the [facility] Microbiology Lab prior to cl inical use.PROTHROMBIN TIME/[id number] 06:14:00* Test Item Value Reference Range Comments PROTIME (BEAKER) (test wrph=873) 28.3 seconds 11.9-14.2 INR (BEAKER) (test fhzy=988) 2.8 <=5.9 Effective 11/17/2018: PT Reference Range ChangeNew: 11.9-14.2 Previous: 11.7-14. 7RECOMMENDED COUMADIN/WARFARIN INR THERAPY RANGESSTANDARD DOSE: 2.0-3.0 Include s: PROPHYLAXIS for venous thrombosis, systemic embolization; TREATMENT for venou s thrombosis and/or pulmonary embolus.HIGH RISK: Target INR is 2.5-3.5 for patie nts wiht mechanical heart valves.BASIC METABOLIC [id number] 06:06:00* Test Item Value Reference Range Comments SODIUM (BEAKER) (test aomh=120) 139 meq/L 136-145 POTASSIUM (BEAKER) (test sjqy=839) 3.6 meq/L 3.5-5.1 Specimen slightly hemolyzed CHLORIDE (BEAKER) (test kgyt=556) 112 meq/L 98-107 CO2 (BEAKER) (test ixnq=597) 21 meq/L 22-29 BLOOD UREA NITROGEN (BEAKER) (test ouan=862) 20 mg/dL 7-21 CREATININE (BEAKER) (test agez=290) 1.32 mg/dL 0.57-1.25 Specimen slightly hemolyzed GLUCOSE RANDOM (BEAKER) (test cdzi=805) 87 mg/dL 70-105 CALCIUM (BEAKER) (test hbql=574) 8.6 mg/dL 8.4-10.2 EGFR (BEAKER) (test tsny=5564) 52 mL/min/1.73 sq m ESTIMATED GFR IS NOT ACCURATE CREATININE CLEARANCE IN PREDICTING GLOMERULAR FILTRATION RATE. ESTIMATED GFR IS NOT APPLICABLE FOR DIALYSIS PATIENTS. HEPATIC FUNCTION [id number] 06:06:00* Test Item Value Reference Range Comments TOTAL PROTEIN (BEAKER) (test jcit=749) 5.3 gm/dL 6.0-8.3 Specimen slightly hemolyzed ALBUMIN (BEAKER) (test thlv=3884) 3.2 g/dL 3.5-5.0 Specimen slightly hemolyzed BILIRUBIN TOTAL (BEAKER) (test dcie=395) 0.5 mg/dL 0.2-1.2 Specimen slightly hemolyzed BILIRUBIN DIRECT (BEAKER) (test lfxe=530) 0.3 mg/dL 0.1-0.5 Specimen slightly hemolyzed ALKALINE PHOSPHATASE (BEAKER) (test sjne=819) 100 U/L 40-150 AST (SGOT) (BEAKER) (test zkpf=350) 26 U/L 5-34 Specimen slightly hemolyzed ALT (SGPT) (BEAKER) (test tnox=399) 16 U/L 6-55 Specimen slightly hemolyzed CBC W/PLT COUNT & AUTO [id number] 05:48:00* Test Item Value Reference Range Comments WHITE BLOOD CELL COUNT (BEAKER) (test kvqh=660) 7.2 K/ L 3.5-10.5 RED BLOOD CELL COUNT (BEAKER) (test wtbx=789) 3.49 M/ L 4.63-6.08 HEMOGLOBIN (BEAKER) (test uvxl=053) 11.4 GM/DL 13.7-17.5 HEMATOCRIT (BEAKER) (test qzdl=264) 34.7 % 40.1-51.0 MEAN CORPUSCULAR VOLUME (BEAKER) (test dtgb=120) 99.4 fL 79.0-92.2 MEAN CORPUSCULAR HEMOGLOBIN (BEAKER) (test cblc=555) 32.7 pg 25.7-32.2 MEAN CORPUSCULAR HEMOGLOBIN CONC (BEAKER) (test hxux=926) 32.9 GM/DL 32.3-36.5 RED CELL DISTRIBUTION WIDTH (BEAKER) (test lyco=649) 15.0 % 11.6-14.4 PLATELET COUNT (BEAKER) (test siwp=472) 197 K/CU MM 150-450 MEAN PLATELET VOLUME (BEAKER) (test nvep=402) 10.3 fL 9.4-12.4 NUCLEATED RED BLOOD CELLS (BEAKER) (test cyhu=505) 0 /100 WBC 0-0 NEUTROPHILS RELATIVE PERCENT (BEAKER) (test hfvm=111) 63 % LYMPHOCYTES RELATIVE PERCENT (BEAKER) (test wbwl=874) 24 % MONOCYTES RELATIVE PERCENT (BEAKER) (test ngjd=803) 9 % EOSINOPHILS RELATIVE PERCENT (BEAKER) (test tcdd=792) 3 % BASOPHILS RELATIVE PERCENT (BEAKER) (test nonx=695) 1 % NEUTROPHILS ABSOLUTE COUNT (BEAKER) (test mace=132) 4.54 K/ L 1.78-5.38 LYMPHOCYTES ABSOLUTE COUNT (BEAKER) (test klhr=626) 1.74 K/ L 1.32-3.57 MONOCYTES ABSOLUTE COUNT (BEAKER) (test ngjo=884) 0.64 K/ L 0.30-0.82 EOSINOPHILS ABSOLUTE COUNT (BEAKER) (test jccx=106) 0.18 K/ L 0.04-0.54 BASOPHILS ABSOLUTE COUNT (BEAKER) (test blsz=030) 0.05 K/ L 0.01-0.08 IMMATURE GRANULOCYTES-RELATIVE PERCENT (BEAKER) (test xhgw=7503) 0 % 0-1 [id number] 16:38:00* Test Item Value Reference Range Comments PROTIME (BEAKER) (test guqm=112) 28.0 seconds 11.9-14.2 INR (BEAKER) (test faqx=365) 2.8 <=5.9 PARTIAL THROMBOPLASTIN TIME (BEAKER) (test pmty=795) 38.5 seconds 22.5-36.0 Effective 11/17/2018: PT Reference Range ChangeNew: 11.9-14.2 Previous: 11.7-14. 7RECOMMENDED COUMADIN/WARFARIN INR THERAPY RANGESSTANDARD DOSE: 2.0-3.0 Include s: PROPHYLAXIS for venous thrombosis, systemic embolization; TREATMENT for venou s thrombosis and/or pulmonary embolus.HIGH RISK: Target INR is 2.5-3.5 for patie nts wiht mechanical heart valves.URINALYSIS W/ REFLEX URINE [id number] 13:56:00* Test Item Value Reference Range Comments COLOR (BEAKER) (test rmuo=592) Dark Yellow CLARITY (BEAKER) (test cqeo=041) Clear SPECIFIC GRAVITY UA (BEAKER) (test nlaj=692) 1.017 1.001-1.035 PH UA (BEAKER) (test vfjr=386) 5.5 5.0-8.0 PROTEIN UA (BEAKER) (test wgck=089) 10 mg/dL Negative GLUCOSE UA (BEAKER) (test tbmm=687) Negative Negative KETONES UA (BEAKER) (test erbc=381) Negative Negative BILIRUBIN UA (BEAKER) (test esgi=574) Negative Negative BLOOD UA (BEAKER) (test soax=715) Negative Negative NITRITE UA (BEAKER) (test lfun=987) Negative Negative LEUKOCYTE ESTERASE UA (BEAKER) (test qvbg=446) Negative Negative UROBILINOGEN UA (BEAKER) (test vkpl=639) 0.2 mg/dL 0.2-1.0 RBC UA (BEAKER) (test nfyl=355) 0 /HPF WBC UA (BEAKER) (test eajc=239) 1 /HPF BACTERIA (BEAKER) (test ytqs=169) Rare HYALINE CASTS (BEAKER) (test slks=759) 2 /LPF SOURCE(BEAKER) (test gyry=9916) [id number] 13:05:00* Test Item Value Reference Range Comments LIPASE (BEAKER) (test rdmt=631) 14 U/L 8-78 [id number] 13:05:00* Test Item Value Reference Range Comments AMYLASE (BEAKER) (test yazf=488) 72 U/L 25-125 BASIC METABOLIC [id number] 13:05:00* Test Item Value Reference Range Comments SODIUM (BEAKER) (test xzph=714) 137 meq/L 136-145 POTASSIUM (BEAKER) (test awoy=302) 3.6 meq/L 3.5-5.1 CHLORIDE (BEAKER) (test vckx=438) 110 meq/L 98-107 CO2 (BEAKER) (test hkrm=401) 23 meq/L 22-29 BLOOD UREA NITROGEN (BEAKER) (test hxdd=356) 20 mg/dL 7-21 CREATININE (BEAKER) (test ngog=977) 1.40 mg/dL 0.57-1.25 GLUCOSE RANDOM (BEAKER) (test fhxw=427) 110 mg/dL 70-105 CALCIUM (BEAKER) (test hgqf=300) 8.9 mg/dL 8.4-10.2 EGFR (BEAKER) (test hcav=8763) 49 mL/min/1.73 sq m ESTIMATED GFR IS NOT ACCURATE CREATININE CLEARANCE IN PREDICTING GLOMERULAR FILTRATION RATE. ESTIMATED GFR IS NOT APPLICABLE FOR DIALYSIS PATIENTS. HEPATIC FUNCTION [id number] 13:05:00* Test Item Value Reference Range Comments TOTAL PROTEIN (BEAKER) (test xrfc=129) 5.7 gm/dL 6.0-8.3 ALBUMIN (BEAKER) (test zfhq=1855) 3.4 g/dL 3.5-5.0 BILIRUBIN TOTAL (BEAKER) (test pdxp=538) 0.4 mg/dL 0.2-1.2 BILIRUBIN DIRECT (BEAKER) (test ofit=442) 0.3 mg/dL 0.1-0.5 ALKALINE PHOSPHATASE (BEAKER) (test nzxj=780) 122 U/L 40-150 AST (SGOT) (BEAKER) (test ibvl=034) 25 U/L 5-34 ALT (SGPT) (BEAKER) (test qglu=575) 18 U/L 6-55 CBC W/PLT COUNT & AUTO [id number] 12:50:00* Test Item Value Reference Range Comments WHITE BLOOD CELL COUNT (BEAKER) (test sozq=892) 8.8 K/ L 3.5-10.5 RED BLOOD CELL COUNT (BEAKER) (test qgjl=410) 3.66 M/ L 4.63-6.08 HEMOGLOBIN (BEAKER) (test qjvv=605) 12.0 GM/DL 13.7-17.5 HEMATOCRIT (BEAKER) (test brvo=566) 37.1 % 40.1-51.0 MEAN CORPUSCULAR VOLUME (BEAKER) (test rfdg=175) 101.4 fL 79.0-92.2 MEAN CORPUSCULAR HEMOGLOBIN (BEAKER) (test uaop=720) 32.8 pg 25.7-32.2 MEAN CORPUSCULAR HEMOGLOBIN CONC (BEAKER) (test pktv=194) 32.3 GM/DL 32.3-36.5 RED CELL DISTRIBUTION WIDTH (BEAKER) (test tluv=111) 14.9 % 11.6-14.4 PLATELET COUNT (BEAKER) (test miiq=932) 199 K/CU MM 150-450 MEAN PLATELET VOLUME (BEAKER) (test ckbt=035) 10.3 fL 9.4-12.4 NUCLEATED RED BLOOD CELLS (BEAKER) (test wgfn=770) 0 /100 WBC 0-0 NEUTROPHILS RELATIVE PERCENT (BEAKER) (test ogmd=024) 77 % LYMPHOCYTES RELATIVE PERCENT (BEAKER) (test ctgi=555) 12 % MONOCYTES RELATIVE PERCENT (BEAKER) (test dwkz=339) 8 % EOSINOPHILS RELATIVE PERCENT (BEAKER) (test bfyb=372) 2 % BASOPHILS RELATIVE PERCENT (BEAKER) (test wjfo=392) 1 % NEUTROPHILS ABSOLUTE COUNT (BEAKER) (test djuy=657) 6.74 K/ L 1.78-5.38 LYMPHOCYTES ABSOLUTE COUNT (BEAKER) (test uarg=138) 1.05 K/ L 1.32-3.57 MONOCYTES ABSOLUTE COUNT (BEAKER) (test mbzj=789) 0.74 K/ L 0.30-0.82 EOSINOPHILS ABSOLUTE COUNT (BEAKER) (test qmyc=480) 0.15 K/ L 0.04-0.54 BASOPHILS ABSOLUTE COUNT (BEAKER) (test fnmk=531) 0.06 K/ L 0.01-0.08 IMMATURE GRANULOCYTES-RELATIVE PERCENT (BEAKER) (test pobe=9276) 0 % 0-1 URINALYSIS W/ [id number] 11:57:00* Test Item Value Reference Range Comments COLOR (BEAKER) (test uppu=018) Yellow CLARITY (BEAKER) (test gvte=022) Clear SPECIFIC GRAVITY UA (BEAKER) (test yyca=131) 1.016 1.001-1.035 PH UA (BEAKER) (test legt=518) 5.5 5.0-8.0 PROTEIN UA (BEAKER) (test nsiu=277) 10 mg/dL Negative GLUCOSE UA (BEAKER) (test saar=989) Negative Negative KETONES UA (BEAKER) (test kiga=080) Negative Negative BILIRUBIN UA (BEAKER) (test kpia=485) Negative Negative BLOOD UA (BEAKER) (test adfa=554) Negative Negative NITRITE UA (BEAKER) (test tskj=658) Negative Negative LEUKOCYTE ESTERASE UA (BEAKER) (test hhyg=209) Negative Negative UROBILINOGEN UA (BEAKER) (test ktge=178) 0.2 mg/dL 0.2-1.0 RBC UA (BEAKER) (test lnkb=710) 0 /HPF WBC UA (BEAKER) (test aydq=571) 1 /HPF MUCUS (BEAKER) (test nhkd=1752) Few SQUAMOUS EPITHELIAL (BEAKER) (test idoc=001) 1 /HPF HYALINE CASTS (BEAKER) (test teyq=603) 12 /LPF AMORPHOUS CRYSTALS (BEAKER) (test qivg=6966) Rare SOURCE(BEAKER) (test uyts=2369) CT, [id number] 11:37:00Referring Md: Angelika Ayala for exam:->Abdominal painWhat is the patient's sedation requirement?->No Sedation FINAL REPORT TECHNIQUE: CT of the abdomen and pelvis WITH OUT intravenous contrast and WITHOUT oral contrast. Dose modulation, iterative r econstruction, and/or weight-based adjustment of the mA/kV was utilized to reduc e the radiation dose to as low as reasonably achievable. INDICATION: Abdominal p ainabdominal pain. COMPARISON: CT from 07/06/2016. MRI from 01/06/2019 FINDINGS: ABSENCE OF INTRAVENOUS CONTRAST DECREASES SENSITIVITY FOR DETECTION OF FOCAL LES IONS AND VASCULAR PATHOLOGY. LOWER THORAX: Unremarkable. HEPATOBILIARY: A mass i n segment V measures 2.2 cm on axial image 23, unchanged from the prior. This is consistent with the known portosystemic fistula. Prior cholecystectomy. No bili silvana ductal dilatation.SPLEEN: No splenomegaly.PANCREAS: No focal masses or ducta l dilatation. ADRENALS: No adrenal nodules.KIDNEYS/URETERS: No hydronephrosis, s tones, or exophytic masses. A right lower pole renal cyst measures 1.6 cm.PELVIC ORGANS/BLADDER: Unremarkable. PERITONEUM/RETROPERITONEUM: No free air or fluid. LYMPH NODES: No lymphadenopathy.VESSELS: Marked aortoiliac calcification. Modera te calcification of the superior mesenteric artery. There is likely a stent in t he left common iliac artery. GI TRACT: Question, mild colonic wall thickening, e specially the transverse colon. Severe diverticulosis of the sigmoid colon. Mild left colonic diverticulosis. The appendix is normal. BONES AND SOFT TISSUES: Mo derate degenerative changes of the right hip. Moderate degenerative disc changes of the lumbar spine. The bones are diffusely demineralized. Prior median sterno lilian. IMPRESSION: The questionable, mild transverse colonic wall thickening is concerning for colitis. Signed: Jimmie Wahl MDReport Verified Date/Time: 019 11:37:05 Reading Location: [facility] C013Y CT Body Reading Room Electronic ally signed by: JIMMIE WAHL MD on 03/06/2019 11:37 AM [id number] 10:35:00* Test Item Value Reference Range Comments LIPASE (BEAKER) (test pjft=436) 12 U/L 8-78 BASIC METABOLIC [id number] 10:35:00* Test Item Value Reference Range Comments SODIUM (BEAKER) (test evlg=633) 139 meq/L 136-145 POTASSIUM (BEAKER) (test qino=495) 3.4 meq/L 3.5-5.1 CHLORIDE (BEAKER) (test pdzl=887) 108 meq/L 98-107 CO2 (BEAKER) (test yzzh=009) 20 meq/L 22-29 BLOOD UREA NITROGEN (BEAKER) (test ccyx=777) 32 mg/dL 7-21 CREATININE (BEAKER) (test hqqi=197) 1.75 mg/dL 0.57-1.25 GLUCOSE RANDOM (BEAKER) (test yvwv=348) 102 mg/dL 70-105 CALCIUM (BEAKER) (test qdlv=285) 9.5 mg/dL 8.4-10.2 EGFR (BEAKER) (test cjgc=0477) 38 mL/min/1.73 sq m ESTIMATED GFR IS NOT ACCURATE CREATININE CLEARANCE IN PREDICTING GLOMERULAR FILTRATION RATE. ESTIMATED GFR IS NOT APPLICABLE FOR DIALYSIS PATIENTS. HEPATIC FUNCTION [id number] 10:35:00* Test Item Value Reference Range Comments TOTAL PROTEIN (BEAKER) (test rzve=175) 6.5 gm/dL 6.0-8.3 ALBUMIN (BEAKER) (test hgdn=9465) 3.7 g/dL 3.5-5.0 BILIRUBIN TOTAL (BEAKER) (test jdfx=071) 0.6 mg/dL 0.2-1.2 BILIRUBIN DIRECT (BEAKER) (test oaro=178) 0.3 mg/dL 0.1-0.5 ALKALINE PHOSPHATASE (BEAKER) (test tlpy=946) 103 U/L 40-150 AST (SGOT) (BEAKER) (test ckox=352) 32 U/L 5-34 ALT (SGPT) (BEAKER) (test ebqq=037) 25 U/L 6-55 [id number] 10:23:00* Test Item Value Reference Range Comments PROTIME (BEAKER) (test shdh=694) 29.8 seconds 11.9-14.2 INR (BEAKER) (test igoe=843) 3.0 <=5.9 PARTIAL THROMBOPLASTIN TIME (BEAKER) (test egzw=272) 41.4 seconds 22.5-36.0 Effective 11/17/2018: PT Reference Range ChangeNew: 11.9-14.2 Previous: 11.7-14. 7RECOMMENDED COUMADIN/WARFARIN INR THERAPY RANGESSTANDARD DOSE: 2.0-3.0 Include s: PROPHYLAXIS for venous thrombosis, systemic embolization; TREATMENT for venou s thrombosis and/or pulmonary embolus.HIGH RISK: Target INR is 2.5-3.5 for patie nts wiht mechanical heart valves.CBC W/PLT COUNT & AUTO [id number] 10:12:00* Test Item Value Reference Range Comments WHITE BLOOD CELL COUNT (BEAKER) (test ikgx=058) 9.4 K/ L 3.5-10.5 RED BLOOD CELL COUNT (BEAKER) (test mhci=203) 4.06 M/ L 4.63-6.08 HEMOGLOBIN (BEAKER) (test ajzl=619) 13.3 GM/DL 13.7-17.5 HEMATOCRIT (BEAKER) (test pkhq=550) 40.1 % 40.1-51.0 MEAN CORPUSCULAR VOLUME (BEAKER) (test symm=009) 98.8 fL 79.0-92.2 MEAN CORPUSCULAR HEMOGLOBIN (BEAKER) (test jnfw=066) 32.8 pg 25.7-32.2 MEAN CORPUSCULAR HEMOGLOBIN CONC (BEAKER) (test umky=018) 33.2 GM/DL 32.3-36.5 RED CELL DISTRIBUTION WIDTH (BEAKER) (test tauj=607) 14.4 % 11.6-14.4 PLATELET COUNT (BEAKER) (test chkr=260) 263 K/CU MM 150-450 MEAN PLATELET VOLUME (BEAKER) (test apwo=046) 10.4 fL 9.4-12.4 NUCLEATED RED BLOOD CELLS (BEAKER) (test fwav=597) 0 /100 WBC 0-0 NEUTROPHILS RELATIVE PERCENT (BEAKER) (test fchj=255) 73 % LYMPHOCYTES RELATIVE PERCENT (BEAKER) (test xuup=283) 15 % MONOCYTES RELATIVE PERCENT (BEAKER) (test bvkw=395) 9 % EOSINOPHILS RELATIVE PERCENT (BEAKER) (test xapr=883) 2 % BASOPHILS RELATIVE PERCENT (BEAKER) (test cnqa=563) 0 % NEUTROPHILS ABSOLUTE COUNT (BEAKER) (test qxvo=981) 6.81 K/ L 1.78-5.38 LYMPHOCYTES ABSOLUTE COUNT (BEAKER) (test qxwv=606) 1.41 K/ L 1.32-3.57 MONOCYTES ABSOLUTE COUNT (BEAKER) (test foon=027) 0.88 K/ L 0.30-0.82 EOSINOPHILS ABSOLUTE COUNT (BEAKER) (test mcqm=452) 0.20 K/ L 0.04-0.54 BASOPHILS ABSOLUTE COUNT (BEAKER) (test daxo=525) 0.04 K/ L 0.01-0.08 IMMATURE GRANULOCYTES-RELATIVE PERCENT (BEAKER) (test zybx=3099) 0 % 0-1 RAD, HIP, 2 VIEWS, [id number] 13:07:00Referring Md: Angelika Ayala for exam:->GROIN PAINFINAL REPORT TECHNIQUE: Frontal and lateral radiographs of the right hip dated 01/25/2019 HISTORY: Groin pain COMPARISON: None. FINDINGS:No fracture or dislocation. Bones are osteopenic. There is moderate joint space narrowing. No bone erosion or soft tissue nodule seen. No radiodense foreign body or subcutaneous emphysema. IMPRESSION:No fracture or dislocation. Moderate joint space narrowing. 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 Patient has chronic kidney disease.FINAL REPORT TECHNIQUE: MRI of the abdomen WITHOUT and WITH intravenous contrast. 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 Patient has chronic kidney disease.. COMPARISON: MRI from 06/24/2018. FINDINGS: LOWER THORAX: Unremarkable. LIVER: No hepatic signal abnormality. No focal hepatic lesions. The portosystemic shunt in segment V measures 2.2 cm and is unchanged. This appears to connect the right portal vein to the right hepatic vein.BILIARY: Gallbladder is unremarkable. No biliary ductal dilatation or filling defect.SPLEEN: No splenomegaly.PANCREAS: No focal masses or ductal dilatation. ADRENALS: No adrenal nodules.KIDNEYS/URETERS: No hydronephrosis or solid mass lesions. There are four simple renal cysts in each kidney which measure up to 1.6 cm on the right. Bilateral renal atrophy and renal cortical scarring. 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 Moderate atherosclerotic changes of the abdominal aorta. The portosyst emic shunt in segment V is unchanged and measures 2.2 cm. The celiac axis is mar kedly narrowed. GI TRACT: No distention or wall thickening. BONES AND SOFT TISSU ES: Leftward convex curvature of the lumbar spine. Moderate degenerative disc ch anges of the lumbar spine. IMPRESSION: 1.The fistula/shunt which connects the r ight portal vein to the right hepatic vein is unchanged. 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 Signed: Jimmie Wahl MDReport Verified Date/Time: 01/07/2019 10:37:13 Reading Location: [address] Radiology Reading Room TIC FUNCTION [id number] 08:37:00* Test Item Value Reference Range Comments TOTAL PROTEIN (BEAKER) (test jdot=854) 6.4 gm/dL 6.0-8.3 ALBUMIN (BEAKER) (test vezs=2084) 3.8 g/dL 3.5-5.0 BILIRUBIN TOTAL (BEAKER) (test xtut=382) 0.5 mg/dL 0.2-1.2 BILIRUBIN DIRECT (BEAKER) (test wrzg=301) 0.3 mg/dL 0.1-0.5 ALKALINE PHOSPHATASE (BEAKER) (test ueuu=783) 118 U/L 40-150 AST (SGOT) (BEAKER) (test fvxm=909) 26 U/L 5-34 ALT (SGPT) (BEAKER) (test gxry=944) 21 U/L 6-55 BASIC METABOLIC [id number] 08:37:00* Test Item Value Reference Range Comments SODIUM (BEAKER) (test mpph=236) 140 meq/L 136-145 POTASSIUM (BEAKER) (test qsrh=403) 3.9 meq/L 3.5-5.1 CHLORIDE (BEAKER) (test ymnx=733) 108 meq/L 98-107 CO2 (BEAKER) (test ivma=349) 26 meq/L 22-29 BLOOD UREA NITROGEN (BEAKER) (test eolf=673) 33 mg/dL 7-21 CREATININE (BEAKER) (test iuza=922) 1.73 mg/dL 0.57-1.25 GLUCOSE RANDOM (BEAKER) (test wyao=688) 98 mg/dL 70-105 CALCIUM (BEAKER) (test usdh=170) 9.0 mg/dL 8.4-10.2 EGFR (BEAKER) (test vjkr=6933) 38 mL/min/1.73 sq m ESTIMATED GFR IS NOT ACCURATE CREATININE CLEARANCE IN PREDICTING GLOMERULAR FILTRATION RATE. ESTIMATED GFR IS NOT APPLICABLE FOR DIALYSIS PATIENTS. [id number] 08:34:00* Test Item Value Reference Range Comments POC-CREATININE (BEAKER) (test tzpz=9580) 1.9 mg/dL 0.6-1.3 TESTED AT [facility] [address] [facility] [place] [address] POC-EGFR (BEAKER) (test idud=2655) 34 mL/min/1.73M2 CBC W/PLT COUNT & AUTO [id number] 07:57:00* Test Item Value Reference Range Comments WHITE BLOOD CELL COUNT (BEAKER) (test vgge=567) 8.7 K/ L 3.5-10.5 RED BLOOD CELL COUNT (BEAKER) (test owaw=087) 4.21 M/ L 4.63-6.08 HEMOGLOBIN (BEAKER) (test tqmv=320) 14.0 GM/DL 13.7-17.5 HEMATOCRIT (BEAKER) (test nthp=745) 42.3 % 40.1-51.0 MEAN CORPUSCULAR VOLUME (BEAKER) (test pcvp=474) 100.5 fL 79.0-92.2 MEAN CORPUSCULAR HEMOGLOBIN (BEAKER) (test agtq=529) 33.3 pg 25.7-32.2 MEAN CORPUSCULAR HEMOGLOBIN CONC (BEAKER) (test fnto=900) 33.1 GM/DL 32.3-36.5 RED CELL DISTRIBUTION WIDTH (BEAKER) (test efej=784) 14.9 % 11.6-14.4 PLATELET COUNT (BEAKER) (test ohzq=561) 225 K/CU MM 150-450 MEAN PLATELET VOLUME (BEAKER) (test qeus=486) 10.0 fL 9.4-12.4 NUCLEATED RED BLOOD CELLS (BEAKER) (test phbf=271) 0 /100 WBC 0-0 NEUTROPHILS RELATIVE PERCENT (BEAKER) (test iykc=041) 64 % LYMPHOCYTES RELATIVE PERCENT (BEAKER) (test igkn=175) 21 % MONOCYTES RELATIVE PERCENT (BEAKER) (test eoyb=861) 9 % EOSINOPHILS RELATIVE PERCENT (BEAKER) (test cjwu=889) 5 % BASOPHILS RELATIVE PERCENT (BEAKER) (test ectu=387) 1 % NEUTROPHILS ABSOLUTE COUNT (BEAKER) (test dkfw=416) 5.54 K/ L 1.78-5.38 LYMPHOCYTES ABSOLUTE COUNT (BEAKER) (test ztdu=425) 1.81 K/ L 1.32-3.57 MONOCYTES ABSOLUTE COUNT (BEAKER) (test oybn=823) 0.81 K/ L 0.30-0.82 EOSINOPHILS ABSOLUTE COUNT (BEAKER) (test cesx=269) 0.42 K/ L 0.04-0.54 BASOPHILS ABSOLUTE COUNT (BEAKER) (test iubm=670) 0.07 K/ L 0.01-0.08 IMMATURE GRANULOCYTES-RELATIVE PERCENT (BEAKER) (test urzt=1617) 0 % 0-1 HEPATIC FUNCTION [id number] 15:10:00* Test Item Value Reference Range Comments TOTAL PROTEIN (BEAKER) (test simt=209) 6.5 gm/dL 6.0-8.3 ALBUMIN (BEAKER) (test bdmx=7709) 3.9 g/dL 3.5-5.0 BILIRUBIN TOTAL (BEAKER) (test pckm=461) 0.6 mg/dL 0.2-1.2 BILIRUBIN DIRECT (BEAKER) (test xjpq=703) 0.3 mg/dL 0.1-0.5 ALKALINE PHOSPHATASE (BEAKER) (test cfcd=535) 99 U/L 40-150 AST (SGOT) (BEAKER) (test gjef=408) 40 U/L 5-34 ALT (SGPT) (BEAKER) (test zkjm=207) 34 U/L 6-55 BASIC METABOLIC [id number] 15:10:00* Test Item Value Reference Range Comments SODIUM (BEAKER) (test znrc=951) 142 meq/L 136-145 POTASSIUM (BEAKER) (test cwyt=771) 4.4 meq/L 3.5-5.1 CHLORIDE (BEAKER) (test yhgh=949) 108 meq/L 98-107 CO2 (BEAKER) (test tkjc=611) 26 meq/L 22-29 BLOOD UREA NITROGEN (BEAKER) (test afjw=991) 24 mg/dL 7-21 CREATININE (BEAKER) (test mfzi=184) 1.51 mg/dL 0.57-1.25 GLUCOSE RANDOM (BEAKER) (test wovd=043) 101 mg/dL 70-105 CALCIUM (BEAKER) (test kurh=674) 9.3 mg/dL 8.4-10.2 EGFR (BEAKER) (test kwmj=7415) 45 mL/min/1.73 sq m ESTIMATED GFR IS NOT ACCURATE CREATININE CLEARANCE IN PREDICTING GLOMERULAR FILTRATION RATE. ESTIMATED GFR IS NOT APPLICABLE FOR DIALYSIS PATIENTS. CBC W/PLT COUNT & AUTO [id number] 14:55:00* Test Item Value Reference Range Comments WHITE BLOOD CELL COUNT (BEAKER) (test zupe=023) 6.2 K/ L 3.5-10.5 RED BLOOD CELL COUNT (BEAKER) (test fyra=188) 4.10 M/ L 4.63-6.08 HEMOGLOBIN (BEAKER) (test yhji=034) 13.2 GM/DL 13.7-17.5 HEMATOCRIT (BEAKER) (test irga=339) 41.3 % 40.1-51.0 MEAN CORPUSCULAR VOLUME (BEAKER) (test fsgf=664) 100.7 fL 79.0-92.2 MEAN CORPUSCULAR HEMOGLOBIN (BEAKER) (test phqr=366) 32.2 pg 25.7-32.2 MEAN CORPUSCULAR HEMOGLOBIN CONC (BEAKER) (test utyq=060) 32.0 GM/DL 32.3-36.5 RED CELL DISTRIBUTION WIDTH (BEAKER) (test oeuo=831) 14.6 % 11.6-14.4 PLATELET COUNT (BEAKER) (test kkls=680) 233 K/CU MM 150-450 MEAN PLATELET VOLUME (BEAKER) (test tmja=146) 10.7 fL 9.4-12.4 NUCLEATED RED BLOOD CELLS (BEAKER) (test jnmu=164) 0 /100 WBC 0-0 NEUTROPHILS RELATIVE PERCENT (BEAKER) (test ldda=277) 54 % LYMPHOCYTES RELATIVE PERCENT (BEAKER) (test yhlp=164) 28 % MONOCYTES RELATIVE PERCENT (BEAKER) (test ytaz=784) 10 % EOSINOPHILS RELATIVE PERCENT (BEAKER) (test vnik=529) 7 % BASOPHILS RELATIVE PERCENT (BEAKER) (test buua=987) 1 % NEUTROPHILS ABSOLUTE COUNT (BEAKER) (test ogvi=048) 3.35 K/ L 1.78-5.38 LYMPHOCYTES ABSOLUTE COUNT (BEAKER) (test pgft=699) 1.70 K/ L 1.32-3.57 MONOCYTES ABSOLUTE COUNT (BEAKER) (test mtfr=108) 0.63 K/ L 0.30-0.82 EOSINOPHILS ABSOLUTE COUNT (BEAKER) (test fskc=557) 0.44 K/ L 0.04-0.54 BASOPHILS ABSOLUTE COUNT (BEAKER) (test gfkn=338) 0.06 K/ L 0.01-0.08 IMMATURE GRANULOCYTES-RELATIVE PERCENT (BEAKER) (test mxcw=8784) 0 % 0-1 MR, ABDOMEN, [id number] 11:44:00Referring : Angelika Oliveira 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 Patient has chronic kidney disease.FINAL REPORT Ow 82 TECHNIQUE: MRI of the abdomen WITHOUT and WITH intravenous contrast. INDICATION: 82-year-old man with abnormal findings on diagnostic imaging of abdomen. COMPARISON: Abdomen MRI 01/01/2018. FINDINGS: LOWER THORAX: Unremarkable. LIVER: No hepatic signal abnormality. Unchanged 2.4 x 2.9 cm triangular-shaped structure in segment V/ which is nonenhancing on arterial phase and homogeneously enhances on portal venous phase; this structure remains isointense to the venous system on subsequent postcontrast sequences. This structure appears to communicate with a branch of the right portal vein as well as a branch of the right hepatic vein.BILIARY: Prior cholecystectomy. No biliary ductal dilatation or filling defect.SPLEEN: No splenomegaly.PANCREAS: No focal masses or ductal dilatation. ADRENALS: No adrenal nodules.KIDNEYS/URETERS: No hydronephrosis or solid mass lesions. Unchanged bilateral renal cysts measure up to 0.9 cm on the left and up to 1.8 x 1.3 cm on the right. PERITONEUM/RETROPE RITONEUM: No free fluid.LYMPH NODES: No lymphadenopathy.VESSELS: Atherosclerotic disease throughout the abdominal aorta without aneurysm. Otherwise, unremarkabl e. GI TRACT: No distention or wall thickening. BONES AND SOFT TISSUES: Degenerat ricardo changes of the visualized spine. Soft tissues are unremarkable. IMPRESSION: Unchanged intrahepatic venovenous shunt between a branch of the right portal vei n and a branch of the right hepatic vein. Signed: Miles Ramirez MDReport Verif ied Date/Time: 06/24/2018 11:44:16 Reading Location: [address] Radiology Re ading Room 1 1:44 AM [id number] 10:21:00* Test Item Value Reference Range Comments POC-CREATININE (YURIY) (test kcno=9857) 1.5 mg/dL 0.6-1.3 TESTED AT [facility] [address] [facility] [place] [address] POC-EGFR (YURIY) (test ozzv=8148) 45 mL/min/1.73M2 MR, ABDOMEN, [id number] 11:20:00Referring Md: Angelika AmericaungeLiver mass, rule out malignancy. Patient has chronic kidney disease. I discussed the case with Dr Thrasher who recommended half dose contrast.Patient has outside MRIs for comparison; they are uploaded in the system. The MRI of the abdomen from 08/13/2016 is with contrast.Liver mass, patient has chronic kidney disease, discussed the case with Dr Thrasher who recommended half dose contrasFINAL REPORT MRI of the abdomen dated January 01, 2010 18 Comment: Multiplanar T1 and T2-weighted images of the abdomen, postcontrast axial and coronal T1-weighted images of the abdomen were obtained. Liver and spleen are normal in size. The margin of the liver is somewhat irregular secondary to the diaphragmatic insertion. No MR evidence of cirrhosis is noted. A 2.2 x 3.1 cm lesion is noted in the segment 6 of the liver. This lesion has low signal intens ity on precontrast T1 weighted images and high signal intensity on T2 weighted i mages. This lesion is completely filled with contrast on the portal venous phase examination. There is persistent enhancement on the delayed examination. A drai ana maria hepatic vein is connected to the lesion. This lesion is consistent with por michael hepatic vein fistula. No suspicious mass is seen in the liver. Gallbladder is contracted. No gallstone or biliary dilatation is seen. Pancreas and adrenals are unremarkable. Both kidneys are somewhat atrophic but functioning. No mass, adenopathy, ascites is noted in the abdomen. The visualized small and large patti l normal in caliber. IMPRESSION: Portal hepatic vein fistula. Signed: Brady Huitron MDReport Verified Date/Time: 01/01/2018 11:20:18 Reading Location: [place] [address] Body Reading Room Electronically signed by: DAINA HUITRON M.D. on 11:20 AM [id number] 09:28:00* Test Item Value Reference Range Comments POC-CREATININE (YURIY) (test ixyz=7256) 1.8 mg/dL 0.6-1.3 TESTED AT [address] [address] POC-EGFR (YURIY) (test hlmu=7178) 36 mL/min/1.73M2 [id number] 15:49:00* Test Item Value Reference Range Comments FERRITIN (YURIY) (test pwkz=790) 171 ng/mL 5-275 [id number] 15:25:00* Test Item Value Reference Range Comments ALPHA-1 ANTITRYPSIN (BEAKER) (test zznw=221) 161.30 mg/dL 90.00-200.00 ALPHA FETOPROTEIN (AFP), TUMOR [id number] 14:55:00* Test Item Value Reference Range Comments ALPHA-FETOPROTEIN (BEAKER) (test snwe=5326) < ng/mL <10.0 HEPATITIS B SURFACE [id number] 14:53:00* Test Item Value Reference Range Comments HEPATITIS B SURFACE ANTIBODY (BEAKER) (test umrs=944) < mIU/mL <8.0 HEPATITIS B SURFACE [id number] 14:46:00* Test Item Value Reference Range Comments HEPATITIS B SURFACE ANTIGEN (2) (BEAKER) (test tiux=4489) Nonreactive Nonreactive HEPATITIS B CORE ANTIBODY, [id number] 14:42:00* Test Item Value Reference Range Comments HEPATITIS B CORE TOTAL ANTIBODY (BEAKER) (test gpxe=371) Nonreactive Nonreactive HEPATITIS A ANTIBODY, [id number] 14:42:00* Test Item Value Reference Range Comments HEPATITIS A IGG ANTIBODY (BEAKER) (test lbim=6051) Nonreactive Nonreactive COMPREHENSIVE METABOLIC [id number] 14:20:00* Test Item Value Reference Range Comments TOTAL PROTEIN (BEAKER) (test xyhh=766) 6.7 gm/dL 6.0-8.3 ALBUMIN (BEAKER) (test cmqa=9803) 4.1 g/dL 3.5-5.0 ALKALINE PHOSPHATASE (BEAKER) (test bgpk=713) 137 U/L 40-150 BILIRUBIN TOTAL (BEAKER) (test biuf=109) 0.5 mg/dL 0.2-1.2 SODIUM (BEAKER) (test gppo=046) 146 meq/L 136-145 POTASSIUM (BEAKER) (test oxxt=818) 4.4 meq/L 3.5-5.1 CHLORIDE (BEAKER) (test fqzf=552) 114 meq/L 98-107 CO2 (BEAKER) (test nhek=476) 24 meq/L 22-29 BLOOD UREA NITROGEN (BEAKER) (test atyv=295) 47 mg/dL 7-21 CREATININE (BEAKER) (test yevd=842) 1.66 mg/dL 0.57-1.25 GLUCOSE RANDOM (BEAKER) (test bpis=131) 97 mg/dL 70-105 CALCIUM (BEAKER) (test dvbt=822) 9.3 mg/dL 8.4-10.2 AST (SGOT) (BEAKER) (test ftan=942) 25 U/L 5-34 ALT (SGPT) (BEAKER) (test jnoo=936) 19 U/L 6-55 EGFR (BEAKER) (test gqzc=8505) 40 mL/min/1.73 sq m ESTIMATED GFR IS NOT ACCURATE CREATININE CLEARANCE IN PREDICTING GLOMERULAR FILTRATION RATE. ESTIMATED GFR IS NOT APPLICABLE FOR DIALYSIS PATIENTS. BILIRUBIN, [id number] 14:20:00* Test Item Value Reference Range Comments BILIRUBIN DIRECT (BEAKER) (test onrp=379) 0.2 mg/dL 0.1-0.5 IRON, TIBC, % SAT. (WITHOUT FERRITIN)2017-11-04 14:18:00* Test Item Value Reference Range Comments IRON (BEAKER) (test pjwt=112) 71 ug/dL 40-160 TOTAL IRON BINDING CAPACITY (BEAKER) (test pbhv=814) 268 ug/dL 250-450 IRON % SATURATION (2) (BEAKER) (test urmh=9996) 26 % 20-55 RAD, CHEST, 2 [id number] 09:18:00Reason for exam:->COUGHReason for exam:-> SINUSITISFINAL REPORT TECHNIQUE: Frontal and lateral chest radiographs dated 06/26/2017. CLINICAL HISTORY: Cough, sinusitis COMPARISON STUDY: Chest radiograph dated 09/16/2016 FINDINGS: Lungs are clear. There are trace bilateral pleural effusions or scarring. No pneumothorax. Cardiomediastinal silhouette is normal in size. No pulmonary edema. Midline sternotomy wires are intact and well aligned. Degenerative changes are seen in the spine. No fracture. IMPRESSION: Trace bilateral pleural effusions versus scarring. Signed: Angel Gove[place] Verified Date/Time: 06/26/2017 09:18:48 Reading Location: [facility] Radiology Reading Room C METABOLIC PANEL 2017-05-18 14:38:00* Test Item Value Reference Range Comments SODIUM (BEAKER) (test khir=371) 141 meq/L 136-145 POTASSIUM (BEAKER) (test ocof=885) 4.5 meq/L 3.5-5.1 CHLORIDE (BEAKER) (test wfla=440) 111 meq/L 98-107 CO2 (BEAKER) (test vfat=843) 21 meq/L 22-29 BLOOD UREA NITROGEN (BEAKER) (test hjja=639) 43 mg/dL 7-21 CREATININE (BEAKER) (test rauu=064) 1.50 mg/dL 0.57-1.25 GLUCOSE RANDOM (BEAKER) (test vwmu=210) 90 mg/dL 70-105 CALCIUM (BEAKER) (test icsg=401) 9.1 mg/dL 8.4-10.2 EGFR (BEAKER) (test qirz=5767) 45 mL/min/1.73 sq m ESTIMATED GFR IS NOT ACCURATE CREATININE CLEARANCE IN PREDICTING GLOMERULAR FILTRATION RATE. ESTIMATED GFR IS NOT APPLICABLE FOR DIALYSIS PATIENTS. CBC W/PLT COUNT & AUTO [id number] 13:51:00* Test Item Value Reference Range Comments WHITE BLOOD CELL COUNT (BEAKER) (test mfhe=598) 6.6 K/ L 3.5-10.5 RED BLOOD CELL COUNT (BEAKER) (test gmhl=270) 3.85 M/ L 4.63-6.08 HEMOGLOBIN (BEAKER) (test srfm=378) 12.7 GM/DL 13.7-17.5 HEMATOCRIT (BEAKER) (test klhi=621) 39.0 % 40.1-51.0 MEAN CORPUSCULAR VOLUME (BEAKER) (test ycyx=621) 101.3 fL 79.0-92.2 MEAN CORPUSCULAR HEMOGLOBIN (BEAKER) (test swje=336) 33.0 pg 25.7-32.2 MEAN CORPUSCULAR HEMOGLOBIN CONC (BEAKER) (test cykf=337) 32.6 GM/DL 32.3-36.5 RED CELL DISTRIBUTION WIDTH (BEAKER) (test exlq=615) 14.6 % 11.6-14.4 PLATELET COUNT (BEAKER) (test ffgg=290) 218 K/CU MM 150-450 MEAN PLATELET VOLUME (BEAKER) (test pqeu=073) 10.2 fL 9.4-12.4 NUCLEATED RED BLOOD CELLS (BEAKER) (test vlby=312) 0 /100 WBC 0-0 NEUTROPHILS RELATIVE PERCENT (BEAKER) (test rjyp=369) 56 % LYMPHOCYTES RELATIVE PERCENT (BEAKER) (test rtph=052) 29 % MONOCYTES RELATIVE PERCENT (BEAKER) (test gzeo=787) 8 % EOSINOPHILS RELATIVE PERCENT (BEAKER) (test tiep=880) 6 % BASOPHILS RELATIVE PERCENT (BEAKER) (test ojkt=015) 1 % NEUTROPHILS ABSOLUTE COUNT (BEAKER) (test fxqq=165) 3.67 K/ L 1.78-5.38 LYMPHOCYTES ABSOLUTE COUNT (BEAKER) (test hnuq=358) 1.92 K/ L 1.32-3.57 MONOCYTES ABSOLUTE COUNT (BEAKER) (test udwl=099) 0.55 K/ L 0.30-0.82 EOSINOPHILS ABSOLUTE COUNT (BEAKER) (test rped=195) 0.38 K/ L 0.04-0.54 BASOPHILS ABSOLUTE COUNT (BEAKER) (test hktq=968) 0.05 K/ L 0.01-0.08 IMMATURE GRANULOCYTES-RELATIVE PERCENT (BEAKER) (test yupn=5875) 0 % 0-1 BASIC METABOLIC [id number] 09:40:00* Test Item Value Reference Range Comments SODIUM (BEAKER) (test vsno=116) 139 meq/L 136-145 POTASSIUM (BEAKER) (test qmhw=065) 5.1 meq/L 3.5-5.1 Specimen markedly hemolyzed CHLORIDE (BEAKER) (test vmjj=134) 105 meq/L 98-107 CO2 (BEAKER) (test upye=560) 23 meq/L 22-29 BLOOD UREA NITROGEN (BEAKER) (test joje=482) 34 mg/dL 7-21 CREATININE (BEAKER) (test uytm=919) 1.70 mg/dL 0.57-1.25 Specimen markedly hemolyzed GLUCOSE RANDOM (BEAKER) (test erux=369) 85 mg/dL 70-105 CALCIUM (BEAKER) (test jffz=444) 8.4 mg/dL 8.4-10.2 EGFR (BEAKER) (test smqk=2075) 39 mL/min/1.73 sq m ESTIMATED GFR IS NOT ACCURATE CREATININE CLEARANCE IN PREDICTING GLOMERULAR FILTRATION RATE. ESTIMATED GFR IS NOT APPLICABLE FOR DIALYSIS PATIENTS. CREATINE KINASE (CK), TOTAL AND [id number] 13:22:00* Test Item Value Reference Range Comments CREATINE KINASE TOTAL (BEAKER) (test qhbo=776) 100 U/L 29-200 CREATINE KINASE-MB (BEAKER) (test egsw=634) 3.9 ng/mL 0.0-6.6 CREATINE KINASE-MB INDEX (BEAKER) (test bplb=814) 3.9 % Effective 05/09/2014: CK-MB Reference Range ChangeNew: 0.0-6.6 Previous: 0.0- 4.9CK-MB Reference Range:<6.7 Normal6.7-10.0 Borderline>10.0 Abnormal TROPONIN [id number] 13:22:00* Test Item Value Reference Range Comments TROPONIN I (BEAKER) (test bsco=950) 0.03 ng/mL 0.00-0.03 Effective 05/09/2014: Reference Range ChangeNew: 0.00-0.03 Previous 0.00-0.15T roponin I (TnI) levels must be interpreted in the context of the presenting symp toms and the clinical findings. Elevated TnI levels indicate myocardial damage, but are not specific for ischemic heart disease. Elevated TnI levels are seen in patients with other cardiac conditions (including myocarditis and congestive he art failure), and slight TnI elevations occur in patients with other conditions, including sepsis, renal failure, acidosis, acute neurological disease, and pers istent tachyarrhythmia.HEMOGLOBIN [id number] 11:16:00* Test Item Value Reference Range Comments HEMOGLOBIN A1C (BEAKER) (test mono=759) 6.0 % 4.3-6.1 TSH/FREE T4 IF [id number] 06:56:00* Test Item Value Reference Range Comments THYROID STIMULATING HORMONE (BEAKER) (test gxmm=605) 3.26 uIU/mL 0.35-4.94 CREATINE KINASE (CK), TOTAL AND [id number] 06:47:00* Test Item Value Reference Range Comments CREATINE KINASE TOTAL (BEAKER) (test gtun=915) 92 U/L 29-200 CREATINE KINASE-MB (BEAKER) (test sjjp=812) 4.4 ng/mL 0.0-6.6 CREATINE KINASE-MB INDEX (BEAKER) (test yaot=709) 4.8 % Effective 05/09/2014: CK-MB Reference Range ChangeNew: 0.0-6.6 Previous: 0.0- 4.9CK-MB Reference Range:<6.7 Normal6.7-10.0 Borderline>10.0 Abnormal TROPONIN [id number] 06:43:00* Test Item Value Reference Range Comments TROPONIN I (YRUIY) (test eief=342) 0.03 ng/mL 0.00-0.03 Effective 05/09/2014: Reference Range ChangeNew: 0.00-0.03 Previous 0.00-0.15T roponin I (TnI) levels must be interpreted in the context of the presenting symp toms and the clinical findings. Elevated TnI levels indicate myocardial damage, but are not specific for ischemic heart disease. Elevated TnI levels are seen in patients with other cardiac conditions (including myocarditis and congestive he art failure), and slight TnI elevations occur in patients with other conditions, including sepsis, renal failure, acidosis, acute neurological disease, and pers istent tachyarrhythmia.TROPONIN [id number] 01:09:00* Test Item Value Reference Range Comments TROPONIN I (YURIY) (test fpex=763) < ng/mL 0.00-0.03 Effective 05/09/2014: Reference Range ChangeNew: 0.00-0.03 Previous 0.00-0.15T roponin I (TnI) levels must be interpreted in the context of the presenting symp toms and the clinical findings. Elevated TnI levels indicate myocardial damage, but are not specific for ischemic heart disease. Elevated TnI levels are seen in patients with other cardiac conditions (including myocarditis and congestive he art failure), and slight TnI elevations occur in patients with other conditions, including sepsis, renal failure, acidosis, acute neurological disease, and pers istent tachyarrhythmia.B-TYPE NATRIURETIC FACTOR (BNP)2016-09-17 00:46:00* Test Item Value Reference Range Comments B-TYPE NATRIURETIC PEPTIDE (YURIY) (test fdph=263) 1957 pg/mL 0-100 CREATINE KINASE (CK), TOTAL AND [id number] 00:43:00* Test Item Value Reference Range Comments CREATINE KINASE TOTAL (YURIY) (test qurx=447) 112 U/L 29-200 CREATINE KINASE-MB (BEAKER) (test ncbc=784) 5.0 ng/mL 0.0-6.6 CREATINE KINASE-MB INDEX (BEAKER) (test hvca=314) 4.5 % Effective 05/09/2014: CK-MB Reference Range ChangeNew: 0.0-6.6 Previous: 0.0- 4.9CK-MB Reference Range:<6.7 Normal6.7-10.0 Borderline>10.0 Abnormal [id number] 00:38:00* Test Item Value Reference Range Comments PROTIME (BEAKER) (test jzhi=676) 16.9 seconds 11.7-14.7 INR (BEAKER) (test zlef=931) 1.4 <=5.9 PARTIAL THROMBOPLASTIN TIME (BEAKER) (test sjqd=682) 32.1 seconds 22.5-36.0 RECOMMENDED COUMADIN/WARFARIN INR THERAPY RANGESSTANDARD DOSE: 2.0 - 3.0 Inclu hanh: PROPHYLAXIS for venous thrombosis, systemic embolization; TREATMENT for martha ous thrombosis and/or pulmonary embolus.HIGH RISK: Target INR is 2.5-3.5 for pat ients with mechanical heart valves.[id number] 00:37:00* Test Item Value Reference Range Comments MAGNESIUM (BEAKER) (test aayf=317) 2.3 mg/dL 1.6-2.6 Specimen slightly hemolyzed BASIC METABOLIC [id number] 00:37:00* Test Item Value Reference Range Comments SODIUM (BEAKER) (test fphr=557) 140 meq/L 136-145 POTASSIUM (BEAKER) (test fgxh=850) 4.1 meq/L 3.5-5.1 Specimen slightly hemolyzed CHLORIDE (BEAKER) (test tqfg=631) 109 meq/L 98-107 CO2 (BEAKER) (test owff=903) 21 meq/L 22-29 BLOOD UREA NITROGEN (BEAKER) (test codd=781) 23 mg/dL 7-21 CREATININE (BEAKER) (test diju=150) 1.41 mg/dL 0.57-1.25 Specimen slightly hemolyzed GLUCOSE RANDOM (BEAKER) (test mrhr=444) 93 mg/dL 70-105 CALCIUM (BEAKER) (test mouu=315) 8.6 mg/dL 8.4-10.2 EGFR (BEAKER) (test siki=5810) 48 mL/min/1.73 sq m ESTIMATED GFR IS NOT ACCURATE CREATININE CLEARANCE IN PREDICTING GLOMERULAR FILTRATION RATE. ESTIMATED GFR IS NOT APPLICABLE FOR DIALYSIS PATIENTS. CBC W/PLT COUNT & AUTO [id number] 00:19:00* Test Item Value Reference Range Comments WHITE BLOOD CELL COUNT (BEAKER) (test kuls=369) 8.3 K/ L 4.0-10.0 RED BLOOD CELL COUNT (BEAKER) (test tafd=813) 3.44 M/ L 4.20-5.80 HEMOGLOBIN (BEAKER) (test pdem=392) 11.5 GM/DL 13.0-16.8 HEMATOCRIT (BEAKER) (test mdug=458) 35.1 % 40.0-50.0 MEAN CORPUSCULAR VOLUME (BEAKER) (test dxha=390) 102.0 fL 82.0-98.0 MEAN CORPUSCULAR HEMOGLOBIN (BEAKER) (test igaa=321) 33.6 pg 27.0-33.0 MEAN CORPUSCULAR HEMOGLOBIN CONC (BEAKER) (test sgdq=920) 32.9 GM/DL 32.0-36.0 RED CELL DISTRIBUTION WIDTH (BEAKER) (test ndrb=904) 13.4 % 10.3-14.2 PLATELET COUNT (BEAKER) (test gugq=318) 319 K/CU MM 150-430 MEAN PLATELET VOLUME (BEAKER) (test pdpx=109) 7.3 fL 6.5-10.5 NUCLEATED RED BLOOD CELLS (BEAKER) (test ahgv=727) 0 /100 WBC 0-0 NEUTROPHILS RELATIVE PERCENT (BEAKER) (test tmpz=014) 61 % LYMPHOCYTES RELATIVE PERCENT (BEAKER) (test ytci=485) 27 % MONOCYTES RELATIVE PERCENT (BEAKER) (test stsr=824) 9 % EOSINOPHILS RELATIVE PERCENT (BEAKER) (test ksvi=259) 2 % BASOPHILS RELATIVE PERCENT (BEAKER) (test sqyc=779) 1 % NEUTROPHILS ABSOLUTE COUNT (BEAKER) (test piey=393) 5.03 K/ L 1.80-8.00 LYMPHOCYTES ABSOLUTE COUNT (BEAKER) (test jovx=953) 2.22 K/ L 1.48-4.50 MONOCYTES ABSOLUTE COUNT (BEAKER) (test smyo=305) 0.77 K/ L 0.00-1.30 EOSINOPHILS ABSOLUTE COUNT (BEAKER) (test ybfl=401) 0.17 K/ L 0.00-0.50 BASOPHILS ABSOLUTE COUNT (BEAKER) (test fmpa=812) 0.07 K/ L 0.00-0.20 0.00URINE [id number] 09:24:00* Test Item Value Reference Range Comments CULTURE (BEAKER) (test rscs=2374) ESCHERICHIA COLI >100,000 col/mL Escherichia coli Amikacin (test code=1) Ampicillin + Sulbactam (test code=6) Aztreonam (test code=32) Cefepime (test code=51) Cefoxitin (test code=68) Ceftazidime (test code=27) Ceftriaxone (test code=52) Ertapenem (test code=38) Gentamicin (test code=18) Levofloxacin (test code=22) Meropenem (test code=34) Nitrofurantoin (test code=23) Piperacillin + Tazobactam (test code=29) Tetracycline (test code=2) Tobramycin (test code=25) Trimethoprim + Sulfamethoxazole (test code=47) BASIC METABOLIC [id number] 23:01:00* Test Item Value Reference Range Comments SODIUM (BEAKER) (test qesy=794) 134 meq/L 136-145 POTASSIUM (BEAKER) (test qgkv=273) 4.3 meq/L 3.5-5.1 Specimen slightly hemolyzed CHLORIDE (BEAKER) (test ehvk=331) 104 meq/L 98-107 CO2 (BEAKER) (test ccdg=451) 18 meq/L 22-29 BLOOD UREA NITROGEN (BEAKER) (test rfrb=840) 47 mg/dL 7-21 CREATININE (BEAKER) (test jbug=781) 2.56 mg/dL 0.57-1.25 Specimen slightly hemolyzed GLUCOSE RANDOM (BEAKER) (test nlhr=858) 113 mg/dL 70-105 CALCIUM (BEAKER) (test qqie=476) 8.8 mg/dL 8.4-10.2 EGFR (BEAKER) (test xbuw=5098) 24 mL/min/1.73 sq m ESTIMATED GFR IS NOT ACCURATE CREATININE CLEARANCE IN PREDICTING GLOMERULAR FILTRATION RATE. ESTIMATED GFR IS NOT APPLICABLE FOR DIALYSIS PATIENTS. PT/[id number] 22:57:00* Test Item Value Reference Range Comments PROTIME (BEAKER) (test cbpu=636) 19.6 seconds 11.7-14.7 INR (BEAKER) (test nqyz=885) 1.7 <=5.9 PARTIAL THROMBOPLASTIN TIME (BEAKER) (test lilk=172) 33.9 seconds 22.5-36.0 RECOMMENDED COUMADIN/WARFARIN INR THERAPY RANGESSTANDARD DOSE: 2.0 - 3.0 Inclu hanh: PROPHYLAXIS for venous thrombosis, systemic embolization; TREATMENT for martha ous thrombosis and/or pulmonary embolus.HIGH RISK: Target INR is 2.5-3.5 for pat ients with mechanical heart valves.URINALYSIS W/ [id number] 22:55:00 * Test Item Value Reference Range Comments COLOR (BEAKER) (test nuit=746) Dark Yellow CLARITY (BEAKER) (test ojkl=349) Hazy SPECIFIC GRAVITY UA (BEAKER) (test qspi=941) 1.015 1.001-1.035 PH UA (BEAKER) (test pltk=080) 5.0 5.0-8.0 PROTEIN UA (BEAKER) (test crew=590) 20 mg/dL Negative GLUCOSE UA (BEAKER) (test njyr=015) Negative Negative KETONES UA (BEAKER) (test gfyk=291) Negative Negative BILIRUBIN UA (BEAKER) (test fbiw=632) Negative Negative BLOOD UA (BEAKER) (test tzqf=263) Moderate Negative NITRITE UA (BEAKER) (test ezxb=390) Negative Negative LEUKOCYTE ESTERASE UA (BEAKER) (test lncd=397) Large Negative UROBILINOGEN UA (BEAKER) (test jcjy=507) 0.2 mg/dL 0.2-1.0 RBC UA (BEAKER) (test xzcl=755) 22 /HPF WBC UA (BEAKER) (test ovqw=137) 73 /HPF BACTERIA (BEAKER) (test bqwh=307) Rare MUCUS (BEAKER) (test yvfy=2611) Rare SQUAMOUS EPITHELIAL (BEAKER) (test ytmf=220) < /HPF HYALINE CASTS (BEAKER) (test vium=889) 3 /LPF CASTS (BEAKER) (test dmwb=4045) 6 /LPF CRYSTALS, URINE (BEAKER) (test pprl=7465) Occasional SOURCE(BEAKER) (test finc=6841) Urine, [place] CBC W/PLT COUNT & AUTO [id number] 22:49:00* Test Item Value Reference Range Comments WHITE BLOOD CELL COUNT (BEAKER) (test qjzn=050) 11.7 K/ L 4.0-10.0 RED BLOOD CELL COUNT (BEAKER) (test sxai=464) 3.51 M/ L 4.20-5.80 HEMOGLOBIN (BEAKER) (test wzsg=787) 10.8 GM/DL 13.0-16.8 HEMATOCRIT (BEAKER) (test qbkm=796) 35.6 % 40.0-50.0 MEAN CORPUSCULAR VOLUME (BEAKER) (test vlbs=997) 102.0 fL 82.0-98.0 MEAN CORPUSCULAR HEMOGLOBIN (BEAKER) (test wtay=604) 30.8 pg 27.0-33.0 MEAN CORPUSCULAR HEMOGLOBIN CONC (BEAKER) (test pafd=544) 30.3 GM/DL 32.0-36.0 RED CELL DISTRIBUTION WIDTH (BEAKER) (test jyio=307) 12.9 % 10.3-14.2 PLATELET COUNT (BEAKER) (test acsg=135) 139 K/CU MM 150-430 MEAN PLATELET VOLUME (BEAKER) (test vjbw=661) 8.5 fL 6.5-10.5 NUCLEATED RED BLOOD CELLS (BEAKER) (test mogp=086) 0 /100 WBC 0-0 NEUTROPHILS RELATIVE PERCENT (BEAKER) (test hnje=535) 83 % LYMPHOCYTES RELATIVE PERCENT (BEAKER) (test tdat=115) 11 % MONOCYTES RELATIVE PERCENT (BEAKER) (test bkvh=287) 7 % EOSINOPHILS RELATIVE PERCENT (BEAKER) (test hemq=721) 0 % BASOPHILS RELATIVE PERCENT (BEAKER) (test xlqk=694) 0 % NEUTROPHILS ABSOLUTE COUNT (BEAKER) (test zleq=828) 9.70 K/ L 1.80-8.00 LYMPHOCYTES ABSOLUTE COUNT (BEAKER) (test kycb=863) 1.25 K/ L 1.48-4.50 MONOCYTES ABSOLUTE COUNT (BEAKER) (test pqei=649) 0.77 K/ L 0.00-1.30 EOSINOPHILS ABSOLUTE COUNT (BEAKER) (test gsiy=962) 0.01 K/ L 0.00-0.50 BASOPHILS ABSOLUTE COUNT (BEAKER) (test qmbc=836) 0.01 K/ L 0.00-0.20 0.00
== END 2019-06-02 18:28 ==
LOC: OR 06:17 → PACU V 11:24 → MED/SURG 14:00
PROVIDERS: ADMIT Specialist; ATTEND Specialist
DX: M84.359A Stress fracture, hip, unspecified, initial encounter for fracture (principal); I48.91 Unspecified atrial fibrillation; Z79.01 Long term (current) use of anticoagulants; I25.10 Atherosclerotic heart disease of native coronary artery without angina pectoris; Z95.1 Presence of aortocoronary bypass graft; N18.3 Chronic kidney disease, stage 3 (moderate); I13.0 Hypertensive heart and chronic kidney disease with heart failure and stage 1 through stage 4 chronic kidney disease, or unspecified chronic kidney disease; I50.22 Chronic systolic (congestive) heart failure; E78.5 Hyperlipidemia, unspecified; G47.33 Obstructive sleep apnea (adult) (pediatric); M10.9 Gout, unspecified
CPT/HCPCS: 27248; 36415 ×2; 71046; 73502; 73551; 80048; 80053; 85025 ×2; 85610 ×2; 85730; 97110; 97116 ×2; 97139; 97162; G0378 ×2; J0131; J3010; J7030

== ENCOUNTER 2019-08-18 08:52 | Outpatient (RCR) | payer MEDICARE | END 2019-08-20 | LOC: PT 08:52 | PROVIDERS: ATTEND Specialist | DX: M16.11 Unilateral primary osteoarthritis, right hip (principal); R26.89 Other abnormalities of gait and mobility; M62.81 Muscle weakness (generalized) ==

== ENCOUNTER 2019-09-01 09:50 | Outpatient (RCR) | payer MEDICARE | END 2019-09-20 | LOC: PT 09:50 | PROVIDERS: ATTEND Specialist | DX: M16.11 Unilateral primary osteoarthritis, right hip (principal); M25.551 Pain in right hip; M25.651 Stiffness of right hip, not elsewhere classified; R26.89 Other abnormalities of gait and mobility; M62.81 Muscle weakness (generalized) | CPT/HCPCS: 97139 ==

== ENCOUNTER 2019-09-16 09:00 | Outpatient (RCR) | payer MEDICARE | END 2019-09-20 | LOC: PT 09:00 | PROVIDERS: ATTEND Specialist | DX: M16.11 Unilateral primary osteoarthritis, right hip (principal); R26.89 Other abnormalities of gait and mobility; M62.81 Muscle weakness (generalized) ==

== ENCOUNTER → 2021-03-06 | Day surgery (SDC) | payer MEDICARE ==
[2021-03-04 12:52] LABS: BASOPHILS # (AUTO) 0.1 (0.0-0.1); BASOPHILS % 0.9 % (0.0-1.0); EOSINOPHILS # (AUTO) 0.3 (0.0-0.4); EOSINOPHILS % 5.2 % (0.0-6.0); HEMATOCRIT 40.7 % (38.2-49.6); HEMOGLOBIN 12.9 g/dL (14.0-18.0); LYMPHOCYTES # (AUTO) 1.6 (1.0-3.2); LYMPHOCYTES % 23.7 % (18.0-39.1); MEAN CORPUSCULAR HEMOGLOBIN 32.5 pg (28-32); MEAN CORPUSCULAR HGB CONC 31.7 g/dL (31-35); MEAN CORPUSCULAR VOLUME 102.5 fL (81-99); MONOCYTES # (AUTO) 0.5 (0.2-0.8); MONOCYTES % 7.8 % (4.4-11.3); NEUTROPHILS # (AUTO) 4.1 (2.1-6.9); NEUTROPHILS % 62.1 % (38.7-80.0); PLATELET COUNT 185 x10e3/uL (140-360); RED BLOOD COUNT 3.97 x10e6/uL (4.3-5.7)
[2021-03-04 13:10] LABS: INR 1.61; PROTHROMBIN TIME 19.4 seconds (11.9-14.5)
[2021-03-04 13:11] LABS: PARTIAL THROMBOPLASTIN TIME 38.1 seconds (23.8-35.5)
[2021-03-04 13:18] LABS: ANION GAP 12.8 mmol/L (8-16); CALCIUM 8.8 mg/dL (8.4-10.2); CREATININE, SERUM 1.54 mg/dL (0.72-1.25); POTASSIUM 3.8 mmol/L (3.5-5.1)
[~2021-03-06] MED LIST changes: +ALFUZOSIN HCL10 MG PO; +BUPIVACAINE HCL 0.5% INJ 30 ML VIAL INJ ONE; +CLINDAMYCIN PHOS 900MG/ 50ML 50 ML IV ONE; +DEXAMETHASONE SOD PHOS INJ 4 MG/ML SDV ONE; +FAMOTIDINE20 MG PO; +FINASTERIDE5 MG PO; +GLUCOSAMINE &1 EACH PO; +LIDOCAINE HCL 2% LOCAL INJ 5 ML SDV VIAL INJ ONE; +ONDANSETRON HCL INJ 2MG/ML 2ML 2 MG/ML VIAL ONE; +POVIDONE IODINE 0.05% 0.05 % ML PO ONE; +PROPOFOL IV EMULSION 10 MG/ML 20 ML VIAL ONE; +SEVOFLURANE INHAL SOLN 250 ML PEN BTL ONE; +[UNRECOGNIZED DRUG - OTHER] PO
[2021-03-06 06:59] LABS: INR 1.22; PROTHROMBIN TIME 15.7 seconds (11.9-14.5)
[2021-03-06 07:00] LABS: PARTIAL THROMBOPLASTIN TIME 35.3 seconds (23.8-35.5)
[2021-03-06 09:50] VITALS: BP 151/85
== END | disposition home or self-care (01) ==
LOC: OR 05:22
PROVIDERS: ATTEND Specialist
DX: G56.21 Lesion of ulnar nerve, right upper limb (principal); I25.810 Atherosclerosis of coronary artery bypass graft(s) without angina pectoris; I48.91 Unspecified atrial fibrillation; I12.9 Hypertensive chronic kidney disease with stage 1 through stage 4 chronic kidney disease, or unspecified chronic kidney disease; N18.9 Chronic kidney disease, unspecified; Z88.6 Allergy status to analgesic agent; Z88.1 Allergy status to other antibiotic agents; Z88.8 Allergy status to other drugs, medicaments and biological substances; Z01.812 Encounter for preprocedural laboratory examination; Z01.818 Encounter for other preprocedural examination; Z20.822 Contact with and (suspected) exposure to COVID-19; Z79.02 Long term (current) use of antithrombotics/antiplatelets; Z79.01 Long term (current) use of anticoagulants; Z95.1 Presence of aortocoronary bypass graft
CPT/HCPCS: 36415 ×2; 64718; 71046; 80048; 85025; 85610 ×2; 85730 ×2; J1100; J2001; J2405; J2704; U0002